=== PATIENT | male | born 1950 | race Caucasian/White ===

== ENCOUNTER → 2016-09-20 11:18 | Outpatient (CLI) | payer MEDICARE | END | disposition home or self-care (01) | LOC: D.CT 11:18 | DX: R10.9 Unspecified abdominal pain (principal) ==

== ENCOUNTER 2019-06-05 23:33 | Emergency (ER) | payer MEDICARE ==
[~2019-06-05] VITALS: Ht 177.8 cm; Wt 70.5 kg
[2019-06-05 23:38] VITALS: Ht 177.8 cm; Wt 70.5 kg
[2019-06-05] MEDS ORDERED: CILOSTAZOL50 MG PO (23:39)
[2019-06-05] MEDS ORDERED: CRESTOR20 MG PO (23:39)
[2019-06-05] MEDS ORDERED: PLAVIX75 MG PO (23:40)
[2019-06-05] MEDS ORDERED: ONDANSETRON ODT8 MG SL (23:40)
[2019-06-05] MEDS ORDERED: BACLOFEN20 M1 PO (23:57)
[2019-06-05] MEDS ORDERED: PREDNISONE20 MG PO (23:57)
[2019-06-06 00:55] VITALS: BP 142/68
[2019-06-09 14:27] VITALS: Ht 177.8 cm; Wt 70.5 kg
== END 2019-06-06 00:55 | disposition home or self-care (01) ==
LOC: D.ER 23:33
DX: M54.5 Low back pain (principal); M62.838 Other muscle spasm; I25.2 Old myocardial infarction; Z72.0 Tobacco use; X50.0XXA Overexertion from strenuous movement or load, initial encounter; Y93.9 Activity, unspecified; Y92.9 Unspecified place or not applicable

== ENCOUNTER 2019-06-08 18:03 | Inpatient (IN) | payer MEDICARE ==
[~2019-06-08] VITALS: Ht 170.2 cm; Wt 61.2 kg
[~2019-06-08 18:03] MED LIST: BACLOFEN20 M1 PO; CILOSTAZOL50 MG PO; CRESTOR20 MG PO; ONDANSETRON ODT8 MG SL; PLAVIX75 MG PO; PREDNISONE20 MG PO
[2019-06-08 18:16] VITALS: BP 104/74
[2019-06-08 18:46] LABS: BASOPHILS 0.1 % (0-2); EOSINOPHILS 0.3 % (0-7); HEMATOCRIT 35.8 % (42.0-54.0); HEMOGLOBIN 11.7 g/dL (13.5-17.5); IMMATURE GRANULOCYTES 0.2 % (0-5); LYMPHOCYTES 10.4 % (15-50); MCH 29.9 pg (26.0-34.0); MCHC 32.7 g/dL (31.0-37.0); MCV 91.6 fL (80.0-100.0); MEAN PLATELET VOLUME 9.8 fL (7.4-10.4); MONOCYTES 8.6 % (2-11); NEUTROPHILS 80.4 % (40-80); PLATELET COUNT 387 10x3/uL (130-400); RBC 3.91 10x6/uL (4.20-6.10); WBC 16.3 10x3/uL (4.8-10.8)
[2019-06-08 18:52] LABS: APTT 26.9 SECONDS (22.8-39.4); INR 0.91 (0.85-1.17); PROTIME 12.2 SECONDS (11.6-15.0)
[2019-06-08 18:54] LABS: D-DIMER-QUANTITATIVE 2.06 ug/mLFEU (0.20-0.54)
[2019-06-08 18:57] LABS: CALC OSMOLALITY 299 mosm/kg (275-300); CALCIUM 9.1 mg/dL (8.5-10.1); CARBON DIOXIDE 25.1 mmol/L (21.0-32.0); CHLORIDE - SERUM 111 mmol/L (98-107); GLUCOSE 98 mg/dL (74-106); SODIUM 148 mmol/L (136-145); UREA NITROGEN 29 mg/dL (7-18); eGFR NON AFRICAN AMERICAN 79 mL/min (90-120)
[2019-06-08 19:00] VITALS: BP 178/103
[2019-06-08 19:27] VITALS: BP 184/94
--- NOTE | 2019-06-08 19:27 | NUR ---
URINE OBTAINED FROM OSTOMY BAG. SENT TO THE LAB.
[2019-06-08 19:44] LABS: APPEARANCE CLOUDY (CLEAR); BILIRUBIN NEGATIVE (NEGATIVE); COLOR YELLOW (YELLOW); GLUCOSE NEGATIVE (NEGATIVE); KETONE NEGATIVE (NEGATIVE); NITRITE POSITIVE (NEGATIVE); PROTEIN 1+ mg/dL (NEGATIVE); UROBILINOGEN NORMAL (NORMAL)
[2019-06-08 19:45] LABS: RED CELLS - URINE 0-5 /hpf (0-5); WHITE CELLS - URINE 0-5 /hpf (NEGATIVE)
[2019-06-08 19:46] LABS: BACTERIA MODERATE /hpf (NEGATIVE)
[2019-06-08 19:50] LABS: AMORPHOUS SEDIMENT >1+ /lpf (NONE SEEN); URIC ACID CRYSTALS 25-50 /hpf (NONE SEEN)
[2019-06-08 19:54] LABS: UDS - AMPHET NEGATIVE QUAL (NEGATIVE); UDS - BARB NEGATIVE QUAL (NEGATIVE); UDS - BENZO NEGATIVE QUAL (NEGATIVE); UDS - COCAINE NEGATIVE QUAL (NEGATIVE); UDS - OPIATE NEGATIVE QUAL (NEGATIVE); UDS - PCP NEGATIVE QUAL (NEGATIVE); UDS - THC NEGATIVE QUAL (NEGATIVE)
[2019-06-08 20:00] VITALS: BP 153/63
[2019-06-08 20:07] LABS: ALBUMIN 3.4 g/dL (3.4-5.0); ALKALINE PHOSPHATASE 76 U/L (46-116); ALT (SGPT) 19 U/L (10-68); BILIRUBIN - TOTAL 0.26 mg/dL (0.2-1.3); CKMB 2.2 U/L (0.0-3.6); CREATINE KINASE 258 UL (21-232); PROTEIN - SERUM 7.2 g/dL (6.4-8.2); TROPONIN-I < 0.017 ng/mL (0.000-0.060)
[2019-06-08 20:28] VITALS: BP 159/88
--- NOTE | 2019-06-08 21:35 | NUR ---
EMANUELN COMPLETE AT 1070
--- NOTE | 2019-06-08 22:00 | NUR ---
RECEIVED PT TO FLOOR FROM ER VIA STRETCHER. PT CRIED OUT IN PAIN (NON-SPECIFIC) WHEN TRANSFERRING HIM AND TURNING HIM TO ASSESS. PT HAD RECENT BACK INJURY FAMILY REPORTS. PT HOLLERING OUT INAPPROPRIATE AND/OR INCOMPREHENSIBLE WORDS. EMPTIED 200 MLS CLOUDY ODIFEROUS URINE FROM UROSTOMY. REVIEWED HOME MEDS AND HISTORY WITH FAMILY. FAMILY GOING HOME. TELEMETRY ON. OXYGEN AT 2L/NC. PT NPO. WILL CONTINUE TO MONITOR.
[2019-06-08] MEDS ORDERED: HYDROCODON-ACE1 EA10 PO (22:18)
[2019-06-08] MEDS ORDERED: NITROSTAT0.4 MG SL (22:19)
[2019-06-08] MEDS ORDERED: COREG6.25 MG PO (22:21)
[2019-06-08 23:28] VITALS: BP 152/68; BMI 21.2
[2019-06-09] VITALS: BP 152/68
[2019-06-09 04:00] VITALS: BP 168/94
--- NOTE | 2019-06-09 07:30 | NUR ---
PT IS ALERT AND ORIENTED SORT OF. ANSWERES QUESTIOSN APPRORPIATELY, BUT IS CONSTANTLY TALKING LOUDLY TO HIMSELF. NO COMPLAINTS OR COCNERS AT THIS TIME. UROSTOMY EMPTIED. TUCKED UNDER COVERS. CL INR EACH, SRX2.
[2019-06-09 07:58] VITALS: BP 111/63
--- NOTE | 2019-06-09 10:16 | NUR ---
PT BACK IN ROOM AFTER MRI HOOKED BACK UP TO ANTIBIOTICS. STILL RANDOMLY TALKING A LOT, BUT ALERT AND ORIENTED. NO COMPLAITNS OTHER THAN BEING NPO HE'S PARCHED AND NEEDS WATER. NO FAMILY AT BEDSIDE. CL INR EACH, SRX2.
--- NOTE | 2019-06-09 10:16 | NUR ---
I have reviewed this patient and I concur with the Shift Assessment completed by the Licensed Practical Nurse today this shift.
--- NOTE | 2019-06-09 12:33 | NUR ---
WENT TO ADMINISTER PTS NIKOTINE PATCH, HE REFUSED STATING "IF I CAN'T ROLL IT AND SMOKE IT, I DONT WANT IT. THE HABBIT IS TO SEVERE FOR A SILLY PATCH". DISPOSED OF PATCH PER PROTOCOL. PT IS STILL COMPLIANING ABOUT NPO STATUS, HE WILL BE AHVING A EGD LATER TODAY AND UNDERSTNADS THE NEED FOR NPO. CL IN REACH, SRX2. NO FAMILY AT BEDSIDE.
--- NOTE | 2019-06-09 14:22 | NUR ---
PT OFF TO SURGERY.
[2019-06-09 14:27] VITALS: Ht 170.2 cm; Wt 61.2 kg
--- NOTE | 2019-06-09 14:53 | NUR ---
RECIEVED REPORT FROM GI, STATES PT LIKELY HAS CANCER AND SOME ESOPHAGEAL VARACIES, WILL WAIT ON TO CONFIRM.
[2019-06-09 17:33] VITALS: BP 150/79
[2019-06-09 21:11] VITALS: BP 140/70
--- NOTE | 2019-06-09 21:15 | NUR ---
SUPINE IN BED, A&O X 4. ROSSI ALARM ON. PT DENIES PAIN/DISCOMFORT. UROSTOMY TO RIGHT SIDE OF ABDOMEN, PT DEMONSTRATED SELF CARE. DENIES NEEDS AT THIS TIME, WILL CONTINUE TO MONITOR.
[2019-06-10 01:24] VITALS: BP 139/97
--- NOTE | 2019-06-10 03:20 | NUR ---
I have reviewed this patient and I concur with the Shift Assessment completed by the Licensed Practical Nurse today this shift.
[2019-06-10 04:54] LABS: BASOPHILS 0.3 % (0-2); EOSINOPHILS 1.4 % (0-7); HEMOGLOBIN 9.9 g/dL (13.5-17.5); IMMATURE GRANULOCYTES 0.3 % (0-5); LYMPHOCYTES 17.8 % (15-50); MCH 29.5 pg (26.0-34.0); MCHC 31.9 g/dL (31.0-37.0); MCV 92.3 fL (80.0-100.0); MEAN PLATELET VOLUME 9.5 fL (7.4-10.4); MONOCYTES 7.4 % (2-11); NEUTROPHILS 72.8 % (40-80); PLATELET COUNT 347 10x3/uL (130-400); RBC 3.36 10x6/uL (4.20-6.10); RDW 16.1 % (11.5-14.5)
[2019-06-10 04:56] VITALS: BP 149/74
[2019-06-10 05:09] LABS: CALCIUM 7.5 mg/dL (8.5-10.1); CHLORIDE - SERUM 108 mmol/L (98-107); GLUCOSE 81 mg/dL (74-106); SODIUM 141 mmol/L (136-145); eGFR NON AFRICAN AMERICAN 79 mL/min (90-120)
[2019-06-10 05:16] LABS: WBC 11.7 10x3/uL (4.8-10.8)
[2019-06-10 05:22] LABS: CALC OSMOLALITY 280 mosm/kg (275-300); POTASSIUM - SERUM 3.1 mmol/L (3.5-5.1); UREA NITROGEN 15 mg/dL (7-18)
--- NOTE | 2019-06-10 07:32 | NUR ---
REPORT RECEIVED. WILL CONTINUE WITH POC. PT CURRENTLY LYING SUPINE. CALL LIGHT W/I REACH. PT IS AAO AND UP WITH ASSIST. RR EVEN AND UNLABORED ON RA. NS INFUSING @125ML/HR VIA L.UPPER ARM PIV. NO S/S OF DISTRESS NOTED. PT PLEASANT THIS AM. WILL CTM.
[2019-06-10 09:16] VITALS: BP 144/78
[2019-06-10 13:29] VITALS: BP 130/79
--- NOTE | 2019-06-10 13:38 | MORECARE ---
CASE MANAGEMENT DISCHARGE SUMMARY PATIENT: VANE CARRILLO UNIT: [id number] ADM DATE: 06/08/19 AGE: 69 : 52 SEX: M ROOM/BED: D.2235 AUTHOR: LUIGI BRADY PHYSICIAN: REFERRING PHYSICIAN: CLAUS MOISE MD DATE OF SERVICE: 06/10/19 Discharge Plan Patient Name: VANE CARRILLO [facility] : 1950 Planned Disposition: Home Anticipated Discharge Date: Discharge Date: Expected LOS: Initial Reviewer: [email or web address] Initial Review Date: 06/10/2019 Generated: 06/10/19 2:37 pm Patient Name: VANE CARRILLO Page [phone] at 1338 All edits/amendments must be made on the electronic document DICTATION DATE: 06/10/19 1337 SALES STRATEGY MANAGER: DIOMEDES 06/10/19 1337 RPT#: [id number] DC DATE: STATUS: ADM IN [facility] [address] [place] [address] END OF REPORT
--- NOTE | 2019-06-10 13:46 | MORECARE ---
CASE MANAGEMENT DISCHARGE SUMMARY PATIENT: VANE CARRILLO UNIT: [id number] ADM DATE: 06/08/19 AGE: 69 : 52 SEX: M ROOM/BED: D.2235 AUTHOR: LUIGI BRADY PHYSICIAN: REFERRING PHYSICIAN: CLAUS MOISE MD DATE OF SERVICE: 06/10/19 Discharge Plan Patient Name: VANE CARRILLO [facility] : 1950 Planned Disposition: Home Anticipated Discharge Date: Discharge Date: Expected LOS: Initial Reviewer: [email or web address] Initial Review Date: 06/10/2019 Generated: 06/10/19 2:46 pm DCPIA - Discharge Planning Initial Assessment Updated by [email or web address]: Chiquis Caldera on 06/10/19 1:40 pm * Is the patient Alert and Oriented? Yes * How many steps to enter\exit or inside your home? 4/0 * PCP Albin * Pharm[facility] * Preadmission Environment Home with Family * ADLs Partial Dependent * Partial ADLs (Assistance needed) Ambulation Dressing Transfers * Equipment Cane Ostomy Supplies Other Rolling Walker * Other Equipment Grabber * List name and contact numbers for known caregivers / representatives who currently or will assist patient after discharge: Vanessa Brooks [phone] * Verbal permission to speak to the caregivers and representatives has been obtained from the patient. Yes * Community resources currently utilized None * Additional services required to return to the preadmission environment? No * Can the patient safely return to the preadmission environment? Yes * Has this patient been hospitalized within the prior 30 days at any hospital? No Last DP export: 06/10/19 12:38 p Patient Name: VANE CARRILLO Page [phone] at 1346 All edits/amendments must be made on the electronic document DICTATION DATE: 06/10/19 1346 ELECTRICAL ENGINEERING MANAGER: DIOMEDES 06/10/19 1346 RPT#: [id number] DC DATE: STATUS: ADM IN [facility] [address] [place] [address] END OF REPORT
--- NOTE | 2019-06-10 13:54 | MORECARE ---
CASE MANAGEMENT DISCHARGE SUMMARY PATIENT: VANE CARRILLO UNIT: [id number] ADM DATE: 06/08/19 AGE: 69 : 52 SEX: M ROOM/BED: D.2235 AUTHOR: JOSE ANTONIO,DOC PHYSICIAN: REFERRING PHYSICIAN: CLAUS MOISE MD DATE OF SERVICE: 06/10/19 Discharge Plan Patient Name: VANE CARRILLO Facility: [facility]:[place] : 1950 Planned Disposition: Home Anticipated Discharge Date: Discharge Date: Expected LOS: Initial Reviewer: [email or web address] Initial Review Date: 06/10/2019 Generated: 06/10/19 2:54 pm Comments DCP- Discharge Planning Updated by [email or web address]: Chiquis Caldera on 06/10/19 12:[address] Patient Name: VANE CARRILLO Admission Status: ER Accout number: [id number] Admission Date: 06-08-2019 : 1950 Admission Diagnosis: Attending: CLAUS MOISE Current LOS: 2 Anticipated DC Date: Planned Disposition: Home Primary Insurance: HU[employer] CHOICE PPO MCR ADVANT Discharge Planning Comments: CM met with patient to complete initial dc planning assessment. CM educated patient on the CM role and verbal consent given by patient to complete assessment. Patient lives at home with spouse. At discharge patient plans to return home and feels this is a safe discharge. CM discussed availability of home health, rehab services, and medical equipment. Patient states he has used [facility] in the past and if he needs assistance he will use them ([facility]) again. the patient states he gets his ileal conduit ostomy supplies from [facility].. CM will continue to follow and will assist as needed with dc plans/needs. Energy Efficiency Specialist: Chiquis Caldera DCPIA - Discharge Planning Initial Assessment Updated by [email or web address]: Chiquis Caldera on 06/10/19 1:40 pm * Is the patient Alert and Oriented? Yes * How many steps to enter\exit or inside your home? 4/0 * PCP Albin * [facility] * Preadmission Environment Home with Family * ADLs Partial Dependent * Partial ADLs (Assistance needed) Ambulation Dressing Transfers * Equipment Cane Ostomy Supplies Other Rolling Walker * Other Equipment Grabber * List name and contact numbers for known caregivers / representatives who currently or will assist patient after discharge: aVnessa Brooks [phone] * Verbal permission to speak to the caregivers and representatives has been obtained from the patient. Yes * Community resources currently utilized None * Additional services required to return to the preadmission environment? No * Can the patient safely return to the preadmission environment? Yes * Has this patient been hospitalized within the prior 30 days at any hospital? No Coverage Notice Reviewer: [id number] Aye Mazariegos Notice Issued Date-Time: 06/10/2019 13:48 Notice Type: Patient Choice Letter Notice Delivered To: Patient Relationship to Patient: Self Zoology Professor Name: Delivery Method: HAND - Hand Delivered Gladys Days: Prior Verbal Notification: Recipient Understood Notice: Yes Recipient Signature: Yes Med Rec Note Co-signed by Attending: Coverage Notice Comment: SUDEEP for [facility] if needed Last DP export: 06/10/19 12:46 p Patient Name: VANE CARRILLO Page 47710 at 1354 All edits/amendments must be made on the electronic document DICTATION DATE: 06/10/19 1354 PLANT ELECTRICIAN: DIOMEDES 06/10/19 1354 RPT#: [id number] DC DATE: STATUS: ADM IN [facility] [address] [place] [address] END OF REPORT
[2019-06-10 17:55] VITALS: BP 105/59
--- NOTE | 2019-06-10 19:17 | NUR ---
I have reviewed this patient and I concur with the Shift Assessment completed by the Licensed Practical Nurse today this shift.
[2019-06-10 21:18] VITALS: BP 147/71
--- NOTE | 2019-06-11 00:20 | NUR ---
PT ALERT IN ROOM, ATTEMPTING TO GET OUT OF BED, ROSSI ALARM FUNCTIONING. PT ADDRESSED ME ALYCE, THEN BETHANY. AFTER INFORMING PT I WAS HIS NURSE AND HE WAS IN THE HOSPITAL. HE SAID "I KNOW!" AND PROCEDED TO ATTEMPT TO GET OUT OF BED. INFORMED PT HE WAS PULLING HIS IV TUBING. PT SAT BACK DOWN, THEN TRIED TO GET BACK UP. PT UNABLE TO EMPTY UROSTOMY TO WEAVER. STATED HE WANTED TO SIT IN CHAIR. ROSSI MAT APPLIED TO CHAIR. PT VERY WEAK WHILE TRANSFERING TO CHAIR. INFORMED NOT TO GET UP W/O ASSISTANCE AND TO USE CALL LIGHT. PT VERBALIZED UNDERSTANDING. WILL MONITOR CLOSELY.
[2019-06-11 01:14] VITALS: BP 142/85
--- NOTE | 2019-06-11 03:21 | NUR ---
I have reviewed this patient and I concur with the Shift Assessment completed by the Licensed Practical Nurse today this shift.
[2019-06-11 06:06] VITALS: BP 153/72
[2019-06-11 06:19] LABS: BASOPHILS 0.3 % (0-2); EOSINOPHILS 2.8 % (0-7); HEMATOCRIT 27.3 % (42.0-54.0); HEMOGLOBIN 8.9 g/dL (13.5-17.5); IMMATURE GRANULOCYTES 0.3 % (0-5); LYMPHOCYTES 14.1 % (15-50); MCH 29.6 pg (26.0-34.0); MCHC 32.6 g/dL (31.0-37.0); MCV 90.7 fL (80.0-100.0); MEAN PLATELET VOLUME 9.4 fL (7.4-10.4); MONOCYTES 8.2 % (2-11); NEUTROPHILS 74.3 % (40-80); PLATELET COUNT 304 10x3/uL (130-400); RBC 3.01 10x6/uL (4.20-6.10); RDW 16.1 % (11.5-14.5); WBC 10.3 10x3/uL (4.8-10.8)
[2019-06-11 06:47] LABS: % SATURATION 9 % (15-55); IRON 23 ug/dl (35-150); TOTAL IRON BIND CAPACITY 239 ug/dl (260-445); UNSAT IRON BIND CAPACITY 216 ug/dl (150-375)
--- NOTE | 2019-06-11 07:00 | NUR ---
PATIENT CONFUSED, TRYING TO CLIMB OUT OF BED. THIS NURSE ASSISTED PATIENT BACK INTO BED. HX ETOH ABUSE. WEARS GLASSES. ROSSI ALARM ON. UROSTOMY PRESENT TO ABDOMEN. IV TO LEFT UPPER ARM, NS INFUSING @ 125ML/HR. SITE PATENT WITHOUT REDNESS OR SWELLING. ON TELEMETRY 68SR. H&H DOWN FROM YESTERDAY, WAS 11.7/35.8 AND NOW IS 8.9/27.3 . DENIES ANY NEEDS AT THIS TIME. CALL LIGHT IN REACH. WILL CONTINUE TO MONITOR.
[2019-06-11 07:15] LABS: CALCIUM 7.4 mg/dL (8.5-10.1); CARBON DIOXIDE 19.4 mmol/L (21.0-32.0); CHLORIDE - SERUM 114 mmol/L (98-107); FERRITIN 31 ng/mL (3-244); GLUCOSE 91 mg/dL (74-106); MAGNESIUM - SERUM 2.1 mg/dL (1.8-2.4); POTASSIUM - SERUM 3.5 mmol/L (3.5-5.1); SODIUM 142 mmol/L (136-145)
[2019-06-11 07:16] LABS: CALC OSMOLALITY 281 mosm/kg (275-300); CREATININE - SERUM 0.7 mg/dL (0.6-1.3); UREA NITROGEN 9 mg/dL (7-18); eGFR NON AFRICAN AMERICAN > 90 mL/min (90-120)
[2019-06-11 08:55] VITALS: BP 138/67
--- NOTE | 2019-06-11 10:18 | NUR ---
NUTRITION F/U CHART REVIEWED, PT VISIT. TOLERATING REG DIET THIS AM WITH ~50% INTAKE. WILL ADD ENSURE TO MEALS, MONITOR PO INTAKE. RD FOLLOWING
[2019-06-11 12:55] VITALS: BP 127/83
[2019-06-11 16:28] LABS: BASOPHILS 0.2 % (0-2); EOSINOPHILS 2.9 % (0-7); HEMATOCRIT 28.6 % (42.0-54.0); HEMOGLOBIN 9.3 g/dL (13.5-17.5); IMMATURE GRANULOCYTES 0.2 % (0-5); LYMPHOCYTES 12.4 % (15-50); MCH 29.5 pg (26.0-34.0); MCHC 32.5 g/dL (31.0-37.0); MCV 90.8 fL (80.0-100.0); MEAN PLATELET VOLUME 9.8 fL (7.4-10.4); MONOCYTES 7.2 % (2-11); NEUTROPHILS 77.1 % (40-80); PLATELET COUNT 309 10x3/uL (130-400); RBC 3.15 10x6/uL (4.20-6.10); RDW 16.2 % (11.5-14.5); WBC 12.1 10x3/uL (4.8-10.8)
--- NOTE | 2019-06-11 17:22 | NUR ---
I have reviewed this patient and I concur with the Shift Assessment completed by the Licensed Practical Nurse today this shift.
[2019-06-11 17:33] VITALS: BP 154/83
--- NOTE | 2019-06-11 18:29 | NUR ---
ALERT AND ORIENTED, RESTING IN BED WITH EYES OPEN. C/O ANXIETY, GAVE 1MG ATIVAN IV. NO C/O PAIN. NO S/S OF ACUTE DISTRESS NOTED. DENIES ANY NEEDS AT THIS TIME. CALL LIGHT IN REACH. WILL CONTINUE TO MONITOR.
[2019-06-11 19:30] VITALS: BP 155/74
--- NOTE | 2019-06-11 20:00 | NUR ---
PT CONFUSED. TRYING TO GET OUT OF BED. UNABLE TO REORIENT. REPORTS BACK PAIN 11/27. FALL PRECAUTIONS IN PLACE, WILL MONITOR CLOSELY.
[2019-06-12] VITALS (7 sets, daily range): BP systolic 110–168; BP diastolic 55–99
--- NOTE | 2019-06-12 02:04 | NUR ---
I have reviewed this patient and I concur with the Shift Assessment completed by the Licensed Practical Nurse today this shift.
[2019-06-12 05:05] LABS: BASOPHILS 0.2 % (0-2); EOSINOPHILS 3.2 % (0-7); HEMATOCRIT 28.5 % (42.0-54.0); HEMOGLOBIN 9.2 g/dL (13.5-17.5); IMMATURE GRANULOCYTES 0.4 % (0-5); LYMPHOCYTES 12.3 % (15-50); MCH 29.3 pg (26.0-34.0); MCHC 32.3 g/dL (31.0-37.0); MCV 90.8 fL (80.0-100.0); MONOCYTES 8.9 % (2-11); PLATELET COUNT 313 10x3/uL (130-400); RBC 3.14 10x6/uL (4.20-6.10); RDW 16.4 % (11.5-14.5); WBC 11.2 10x3/uL (4.8-10.8)
[2019-06-12 05:24] LABS: CALC OSMOLALITY 286 mosm/kg (275-300); CALCIUM 7.3 mg/dL (8.5-10.1); CARBON DIOXIDE 22.8 mmol/L (21.0-32.0); CHLORIDE - SERUM 113 mmol/L (98-107); CREATININE - SERUM 0.8 mg/dL (0.6-1.3); GLUCOSE 85 mg/dL (74-106); MAGNESIUM - SERUM 2.2 mg/dL (1.8-2.4); POTASSIUM - SERUM 3.2 mmol/L (3.5-5.1); SODIUM 145 mmol/L (136-145); UREA NITROGEN 10 mg/dL (7-18); eGFR NON AFRICAN AMERICAN > 90 mL/min (90-120)
--- NOTE | 2019-06-12 06:45 | NUR ---
TRYING TO GET UP OUT OF BED, ROSSI ALARM ON. BED WET FROM UROSTOMY LEAKING. THIS NURSE CHANGED ALL LINENS ON BED. ASSISTED PATIENT IN THE BED. DRAINED UROSTOMY BAG. IV TO LEFT UPPER ARM, NS INFUSING @ 125ML/HR. SITE PATENT WITHOUT REDNESS OR SWELLING. C/O PAIN TO BACK, CHRONIC PAIN. PAIN MEDICINE GIVEN ON PRIOR SHIFT, NOT TIME YET FOR MORE. NO S/S OF ACUTE DISTRESS NOTED. CALL LIGHT IN REACH. DENIES ANY NEEDS AT THIS TIME. WILL CONTINUE TO MONITOR.
--- NOTE | 2019-06-12 11:26 | NUR ---
I have reviewed this patient and I concur with the Shift Assessment completed by the Licensed Practical Nurse today this shift.
[2019-06-12 16:23] LABS: BASOPHILS 0.3 % (0-2); EOSINOPHILS 2.4 % (0-7); HEMATOCRIT 29.7 % (42.0-54.0); IMMATURE GRANULOCYTES 0.4 % (0-5); LYMPHOCYTES 10.5 % (15-50); MCH 30.7 pg (26.0-34.0); MCHC 33.7 g/dL (31.0-37.0); MCV 91.1 fL (80.0-100.0); MEAN PLATELET VOLUME 9.5 fL (7.4-10.4); MONOCYTES 7.2 % (2-11); NEUTROPHILS 79.2 % (40-80); PLATELET COUNT 290 10x3/uL (130-400); RBC 3.26 10x6/uL (4.20-6.10); RDW 16.4 % (11.5-14.5); WBC 13.6 10x3/uL (4.8-10.8)
--- NOTE | 2019-06-12 17:00 | NUR ---
IV TO LEFT FOREARM INFILTRATED. DISCONTINUED CATHETER TIP INTACT. RESITED TO RIGHT FOREARM, 22 GA X1 STICK. GOOD BLOOD RETURN.
--- NOTE | 2019-06-12 18:08 | NUR ---
ALERT AND ORIENTED X3. SITTING UP IN BED EATING SUPPER. NO C/O PAIN. NO S/S OF ACUTE DISTRESS NOTED. DENIES ANY NEEDS AT THIS TIME. CALL LIGHT IN REACH. WILL CONTINUE TO MONITOR.
[2019-06-13 00:30] VITALS: BP 104/67
[2019-06-13 04:30] VITALS: BP 140/69
[2019-06-13 06:27] LABS: BASOPHILS 0.3 % (0-2); EOSINOPHILS 3.3 % (0-7); HEMATOCRIT 25.8 % (42.0-54.0); HEMOGLOBIN 8.4 g/dL (13.5-17.5); IMMATURE GRANULOCYTES 0.4 % (0-5); LYMPHOCYTES 15.8 % (15-50); MCH 29.4 pg (26.0-34.0); MCHC 32.6 g/dL (31.0-37.0); MCV 90.2 fL (80.0-100.0); MONOCYTES 8.7 % (2-11); NEUTROPHILS 71.5 % (40-80); PLATELET COUNT 280 10x3/uL (130-400); RBC 2.86 10x6/uL (4.20-6.10); RDW 16.5 % (11.5-14.5); WBC 11.3 10x3/uL (4.8-10.8)
[2019-06-13 07:01] LABS: CALC OSMOLALITY 287 mosm/kg (275-300); CALCIUM 7.3 mg/dL (8.5-10.1); CARBON DIOXIDE 22.5 mmol/L (21.0-32.0); CHLORIDE - SERUM 112 mmol/L (98-107); CREATININE - SERUM 0.9 mg/dL (0.6-1.3); MAGNESIUM - SERUM 2.1 mg/dL (1.8-2.4); POTASSIUM - SERUM 3.1 mmol/L (3.5-5.1); SODIUM 144 mmol/L (136-145); UREA NITROGEN 10 mg/dL (7-18); eGFR NON AFRICAN AMERICAN 89 mL/min (90-120)
[2019-06-13 07:02] LABS: GLUCOSE 132 mg/dL (74-106)
--- NOTE | 2019-06-13 07:50 | NUR ---
RESTING IN BED, EYES CLOSED. RESPIRATIONS EVEN AND UNLABORED. AROUSES TO VOICE. NO C/O PAIN. NO S/S OF ACUTE DISTRESS NOTED. UP WITH ASSIST. UROSTOMY TO ABDOMEN. IV TO RIGHT FOREARM, NS INFUSING @ 125ML/HR. SITE PATENT WITHOUT REDNESS OR SWELLING. ON TELEMETRY SR 75. POTASSIUM 3.1 THIS AM, WILL FOLLOW ELECTROLYTE PROTOCOL. DENIES ANY NEEDS AT THIS TIME. CALL LIGHT IN REACH. WILL CONTINUE TO MONITOR.
[2019-06-13 08:53] VITALS: BP 129/55
[2019-06-13 13:01] VITALS: BP 111/60
--- NOTE | 2019-06-13 13:25 | NUR ---
I have reviewed this patient and I concur with the Shift Assessment completed by the Licensed Practical Nurse today this shift.
[2019-06-13 16:13] LABS: BASOPHILS 0.3 % (0-2); EOSINOPHILS 2.6 % (0-7); HEMATOCRIT 26.7 % (42.0-54.0); HEMOGLOBIN 8.8 g/dL (13.5-17.5); IMMATURE GRANULOCYTES 0.4 % (0-5); LYMPHOCYTES 11.3 % (15-50); MCH 29.5 pg (26.0-34.0); MCV 89.6 fL (80.0-100.0); MEAN PLATELET VOLUME 9.8 fL (7.4-10.4); MONOCYTES 7.9 % (2-11); NEUTROPHILS 77.5 % (40-80); PLATELET COUNT 304 10x3/uL (130-400); RBC 2.98 10x6/uL (4.20-6.10); RDW 16.4 % (11.5-14.5); WBC 13.4 10x3/uL (4.8-10.8)
[2019-06-13 17:02] VITALS: BP 133/64
--- NOTE | 2019-06-13 18:34 | NUR ---
ALERT AND ORIENTED, SITTING UP IN BED. WATCHING TV. DENIES ANY NEEDS AT THIS TIME. CALL LIGHT IN REACH. WILL CONTINUE TO MONITOR.
[2019-06-13 20:00] VITALS: BP 152/72
[2019-06-14 07:16] LABS: BASOPHILS 0.3 % (0-2); EOSINOPHILS 3.3 % (0-7); HEMATOCRIT 25.6 % (42.0-54.0); HEMOGLOBIN 8.4 g/dL (13.5-17.5); IMMATURE GRANULOCYTES 0.4 % (0-5); LYMPHOCYTES 13.8 % (15-50); MCH 29.7 pg (26.0-34.0); MCHC 32.8 g/dL (31.0-37.0); MCV 90.5 fL (80.0-100.0); MONOCYTES 9.6 % (2-11); NEUTROPHILS 72.6 % (40-80); PLATELET COUNT 313 10x3/uL (130-400); RBC 2.83 10x6/uL (4.20-6.10); RDW 16.7 % (11.5-14.5); WBC 10.8 10x3/uL (4.8-10.8)
[2019-06-14 07:40] LABS: ALBUMIN 2.1 g/dL (3.4-5.0); ALKALINE PHOSPHATASE 57 U/L (30-120); ALT (SGPT) 17 U/L (10-68); BILIRUBIN - TOTAL 0.15 mg/dL (0.2-1.3); CALC OSMOLALITY 282 mosm/kg (275-300); CALCIUM 7.4 mg/dL (8.5-10.1); CARBON DIOXIDE 22.2 mmol/L (21.0-32.0); CHLORIDE - SERUM 113 mmol/L (98-107); CREATININE - SERUM 0.8 mg/dL (0.6-1.3); GLUCOSE 97 mg/dL (74-106); POTASSIUM - SERUM 3.5 mmol/L (3.5-5.1); PROTEIN - SERUM 5.2 g/dL (6.4-8.2); SODIUM 143 mmol/L (136-145); UREA NITROGEN 8 mg/dL (7-18); eGFR NON AFRICAN AMERICAN > 90 mL/min (90-120)
--- NOTE | 2019-06-14 08:52 | NUR ---
PT ALERT X 4. BREATH SOUNDS CLEAR BILAT. UROSTOMY TO RLQ, URINE YELLOW AND CLEAR. IV TO RIGHT FOREARM, PATENT, DRESSING CDI. PT REPORTING PAIN OF 9/10 TO BACK, WILL MONITOR. BED LOW, CALL LIGHT IN REACH. NO OTHER NEEDS AT THIS TIME.
[2019-06-14 10:05] VITALS: BP 144/59
[2019-06-14 12:39] VITALS: BP 137/71
[2019-06-14 16:33] VITALS: BP 134/56
[2019-06-14 18:27] LABS: BASOPHILS 0.3 % (0-2); EOSINOPHILS 2.7 % (0-7); HEMATOCRIT 28.5 % (42.0-54.0); HEMOGLOBIN 9.2 g/dL (13.5-17.5); IMMATURE GRANULOCYTES 0.5 % (0-5); LYMPHOCYTES 14.4 % (15-50); MCH 29.8 pg (26.0-34.0); MCHC 32.3 g/dL (31.0-37.0); MCV 92.2 fL (80.0-100.0); MEAN PLATELET VOLUME 9.7 fL (7.4-10.4); MONOCYTES 9.3 % (2-11); NEUTROPHILS 72.8 % (40-80); PLATELET COUNT 304 10x3/uL (130-400); RBC 3.09 10x6/uL (4.20-6.10); WBC 13.1 10x3/uL (4.8-10.8)
[2019-06-14 19:30] VITALS: BP 144/67
[2019-06-15 00:30] VITALS: BP 131/45
[2019-06-15 05:28] LABS: BASOPHILS 0.2 % (0-2); EOSINOPHILS 2.6 % (0-7); HEMATOCRIT 25.6 % (42.0-54.0); HEMOGLOBIN 8.3 g/dL (13.5-17.5); IMMATURE GRANULOCYTES 0.6 % (0-5); LYMPHOCYTES 17.6 % (15-50); MCH 29.5 pg (26.0-34.0); MCHC 32.4 g/dL (31.0-37.0); MCV 91.1 fL (80.0-100.0); MEAN PLATELET VOLUME 9.8 fL (7.4-10.4); MONOCYTES 9.2 % (2-11); NEUTROPHILS 69.8 % (40-80); PLATELET COUNT 304 10x3/uL (130-400); RBC 2.81 10x6/uL (4.20-6.10); WBC 12.5 10x3/uL (4.8-10.8)
[2019-06-15 05:50] LABS: ALBUMIN 2.4 g/dL (3.4-5.0); ALKALINE PHOSPHATASE 66 U/L (30-120); ALT (SGPT) 17 U/L (10-68); CALC OSMOLALITY 283 mosm/kg (275-300); CALCIUM 8.1 mg/dL (8.5-10.1); CARBON DIOXIDE 24.2 mmol/L (21.0-32.0); CHLORIDE - SERUM 112 mmol/L (98-107); CREATININE - SERUM 0.7 mg/dL (0.6-1.3); GLUCOSE 96 mg/dL (74-106); POTASSIUM - SERUM 3.5 mmol/L (3.5-5.1); PROTEIN - SERUM 5.6 g/dL (6.4-8.2); SODIUM 143 mmol/L (136-145); UREA NITROGEN 9 mg/dL (7-18); eGFR NON AFRICAN AMERICAN > 90 mL/min (90-120)
[2019-06-15 08:16] VITALS: BP 119/40
--- NOTE | 2019-06-15 09:19 | NUR ---
PT ALERT X 4. BREATH SOUNDS CLEAR BILAT. IV TO LEFT HAND PATENT, DRESSING CDI. UROSTOMY TO RLQ. PT REPORTING PAIN OF 7/10, MEDICATED PER ORDERS, WILL MONITOR. BED LOW, CALL LIGHT IN REACH. NO OTHER NEEDS AT THIS TIME.
[2019-06-15 13:40] VITALS: BP 114/50
[2019-06-15] MEDS ORDERED: FLORAJEN3 CAPS460 MG PO (14:44)
[2019-06-15] MEDS ORDERED: Nicoderm [PBKC] TRANSDERM (14:44)
[2019-06-15] MEDS ORDERED: CARAFATE1 G PO (14:45)
[2019-06-15] MEDS ORDERED: PROTONIX40 MG PO (14:45)
[2019-06-15] MEDS ORDERED: FERROUS SULFAT325 MG PO (14:45)
[2019-06-15] MEDS ORDERED: OMNICEF300 MG PO (14:46)
[2019-06-15 16:04] LABS: BASOPHILS 0.3 % (0-2); HEMATOCRIT 27.3 % (42.0-54.0); HEMOGLOBIN 8.8 g/dL (13.5-17.5); IMMATURE GRANULOCYTES 0.5 % (0-5); LYMPHOCYTES 15.6 % (15-50); MCH 29.7 pg (26.0-34.0); MCHC 32.2 g/dL (31.0-37.0); MCV 92.2 fL (80.0-100.0); MONOCYTES 9.7 % (2-11); NEUTROPHILS 71.9 % (40-80); PLATELET COUNT 306 10x3/uL (130-400); RBC 2.96 10x6/uL (4.20-6.10); RDW 17.1 % (11.5-14.5); WBC 12.9 10x3/uL (4.8-10.8)
--- NOTE | 2019-06-15 16:29 | NUR ---
DISCHARGE PAPERWORK SIGNED, ALL QUESTIONS ANSWERED. IV TO LEFT HAND DC'D, TIP INTACT. ESCORTED OUT BY WHEELCHAIR.
--- NOTE | 2019-06-16 08:50 | MORECARE ---
CASE MANAGEMENT DISCHARGE SUMMARY PATIENT: VANE CARRILLO UNIT: [id number] ADM DATE: 06/08/19 AGE: 69 : 52 SEX: M ROOM/BED: D.2235 AUTHOR: JOSE ANTONIO,DOC PHYSICIAN: REFERRING PHYSICIAN: CLAUS MOISE MD DATE OF SERVICE: 06/16/19 Discharge Plan Patient Name: VANE CARRILLO Facility: [facility]:[place] : 1950 Planned Disposition: Home Anticipated Discharge Date: Discharge Date: 06/15/2019 Expected LOS: Initial Reviewer: [email or web address] Initial Review Date: 06/10/2019 Generated: 06/16/19 9:49 am DCP- Discharge Planning Updated by [email or web address]: Chiquis Caldera on 06/10/19 12:[address] Patient Name: VANE CARRILLO Admission Status: ER Accout number: [id number] Admission Date: 06-08-2019 : 1950 Admission Diagnosis: Attending: CLAUS MOISE Current LOS: 2 Anticipated DC Date: Planned Disposition: Home Primary Insurance: HU[employer] CHOICE PPO MCR ADVANT Discharge Planning Comments: CM met with patient to complete initial dc planning assessment. CM educated patient on the CM role and verbal consent given by patient to complete assessment. Patient lives at home with spouse. At discharge patient plans to return home and feels this is a safe discharge. CM discussed availability of home health, rehab services, and medical equipment. Patient states he has used [facility] in the past and if he needs assistance he will use them ([facility]) again. the patient states he gets his ileal conduit ostomy supplies from [facility].. CM will continue to follow and will assist as needed with dc plans/needs. Industrial Machinery Mechanic: Chiquis Caldera DCPIA - Discharge Planning Initial Assessment Updated by [email or web address]: Chiquis Caldera on 06/10/19 1:40 pm * Is the patient Alert and Oriented? Yes * How many steps to enter\exit or inside your home? 4/0 * PCP Albin * Pharm[facility] * Preadmission Environment Home with Family * ADLs Partial Dependent * Partial ADLs (Assistance needed) Ambulation Dressing Transfers * Equipment Cane Ostomy Supplies Other Rolling Walker * Other Equipment Grabber * List name and contact numbers for known caregivers / representatives who currently or will assist patient after discharge: Vanessa Brooks [phone] * Verbal permission to speak to the caregivers and representatives has been obtained from the patient. Yes * Community resources currently utilized None * Additional services required to return to the preadmission environment? No * Can the patient safely return to the preadmission environment? Yes * Has this patient been hospitalized within the prior 30 days at any hospital? No Coverage Notice Reviewer: [id number] Aye Mazariegos Notice Issued Date-Time: 06/10/2019 13:48 Notice Type: Patient Choice Letter Notice Delivered To: Patient Relationship to Patient: Self Dater Assembler Name: Delivery Method: HAND - Hand Delivered Gladys Days: Prior Verbal Notification: Recipient Understood Notice: Yes Recipient Signature: Yes Med Rec Note Co-signed by Attending: Coverage Notice Comment: SUDEEP for [facility] if needed Last DP export: 06/10/19 12:54 p Patient Name: VANE CARRILLO Page 92487 at 0850 All edits/amendments must be made on the electronic document DICTATION DATE: 06/16/19 0850 B2B SALES REPRESENTATIVE: DIOMEDES 06/16/19 0850 RPT#: [id number] DC DATE:06/15/19 STATUS: DIS IN [facility] [address] [place] [address] END OF REPORT
[2019-06-16] MEDS ORDERED: TORADOL10 MG PO (16:49)
[2019-06-21 16:08] LABS: AEROBE ID Final report (()); RESULT 1 Proteus mirabilis (())
== END 2019-06-15 16:30 | disposition home health service (06) | DRG 391 ==
LOC: D.ER 18:03 → D.MS 19:54
PROVIDERS: Family Medicine; Internal Medicine Gastroenterology; ADMIT Internal Medicine Nephrology; ATTEND Internal Medicine Nephrology
PROC: 0DB78ZX Excision of Stomach, Pylorus, Via Natural or Artificial Opening Endoscopic, Diagnostic (ICD-10-PCS; 2019-06-09)
PROC: 0DB48ZX Excision of Esophagogastric Junction, Via Natural or Artificial Opening Endoscopic, Diagnostic (ICD-10-PCS; 2019-06-09)
PROC: 0DB38ZX Excision of Lower Esophagus, Via Natural or Artificial Opening Endoscopic, Diagnostic (ICD-10-PCS; principal; 2019-06-09 14:31)
DX: K20.8 Other esophagitis (principal); G93.41 Metabolic encephalopathy; T83.518A Infection and inflammatory reaction due to other urinary catheter, initial encounter; F17.203 Nicotine dependence unspecified, with withdrawal; I31.3 Pericardial effusion (noninflammatory); K29.00 Acute gastritis without bleeding; J44.9 Chronic obstructive pulmonary disease, unspecified; D64.9 Anemia, unspecified; I71.4 Abdominal aortic aneurysm, without rupture; I71.2 Thoracic aortic aneurysm, without rupture

== ENCOUNTER 2019-06-16 13:20 | Emergency (ER) | payer MEDICARE ==
[~2019-06-16] VITALS: Ht 170.2 cm; Wt 56.8 kg
[~2019-06-16 13:20] MED LIST changes: +CARAFATE1 G PO; +COREG6.25 MG PO; +FERROUS SULFAT325 MG PO; +FLORAJEN3 CAPS460 MG PO; +HYDROCODON-ACE1 EA10 PO; +NITROSTAT0.4 MG SL; +Nicoderm [PBKC] TRANSDERM; +OMNICEF300 MG PO; +PROTONIX40 MG PO
[2019-06-16 13:30] VITALS: Ht 170.2 cm; Wt 56.8 kg
[2019-06-16 16:01] LABS: APPEARANCE CLEAR (CLEAR); BILIRUBIN NEGATIVE (NEGATIVE); COLOR YELLOW (YELLOW); GLUCOSE NEGATIVE (NEGATIVE); KETONE NEGATIVE (NEGATIVE); NITRITE NEGATIVE (NEGATIVE); PROTEIN NEGATIVE (NEGATIVE); UROBILINOGEN NORMAL (NORMAL)
[2019-06-16] MEDS ORDERED: TORADOL10 MG PO (16:49)
[2019-06-16 17:29] VITALS: BP 147/70
== END 2019-06-16 17:32 | disposition home or self-care (01) ==
LOC: D.ER 13:20
PROVIDERS: Family Medicine
DX: M62.838 Other muscle spasm (principal); S39.012A Strain of muscle, fascia and tendon of lower back, initial encounter; I25.2 Old myocardial infarction; Z72.0 Tobacco use; K21.9 Gastro-esophageal reflux disease without esophagitis

== ENCOUNTER 2019-07-14 15:58 | Inpatient (IN) | payer MEDICARE ==
[~2019-07-14] VITALS: Ht 170.2 cm; Wt 52.2 kg
[~2019-07-14 15:58] MED LIST changes: +TORADOL10 MG PO
[2019-07-14 16:45] VITALS: BP 116/80; BMI 18.0
--- NOTE | 2019-07-14 16:56 | NUR ---
PATIENT ADMITTED TO ROOM 0. ADMISSION COMPLETE. AT BEDSIDE. EMESIS BAG GIVEN. STATES THROWS UP OFTEN D/T BELCHING BUT NO NAUSEA. MEDICAID SPECIALIST IN ROOM AWARE.
--- NOTE | 2019-07-14 17:30 | NUR ---
ATTEMPTED TO SITE IV TWICE WITHOUT SUCCESS. CALLED ER FOR IV. STATES LAINA WILL COME.
[2019-07-14 17:37] LABS: BASOPHILS 0.2 % (0-2); EOSINOPHILS 0.5 % (0-7); HEMATOCRIT 40.9 % (42.0-54.0); IMMATURE GRANULOCYTES 0.4 % (0-5); LYMPHOCYTES 11.3 % (15-50); MCH 30.2 pg (26.0-34.0); MCHC 34.2 g/dL (31.0-37.0); MCV 88.1 fL (80.0-100.0); MEAN PLATELET VOLUME 9.2 fL (7.4-10.4); NEUTROPHILS 81.6 % (40-80); RBC 4.64 10x6/uL (4.20-6.10); RDW 16.1 % (11.5-14.5); WBC 19.3 10x3/uL (4.8-10.8)
[2019-07-14 17:45] LABS: PLATELET COUNT 425 10x3/uL (130-400)
[2019-07-14 18:01] LABS: ALBUMIN 3.7 g/dL (3.4-5.0); ANION GAP 19.4 mmol/L (8-16); BILIRUBIN - TOTAL 0.2 mg/dL (0.2-1.3); CALCIUM 9.6 mg/dL (8.5-10.1); CARBON DIOXIDE 19.1 mmol/L (21.0-32.0); CREATININE - SERUM 1.7 mg/dL (0.6-1.3); MAGNESIUM - SERUM 2.2 mg/dL (1.8-2.4); POTASSIUM - SERUM 4.5 mmol/L (3.5-5.1); PROTEIN - SERUM 8.4 g/dL (6.4-8.2)
--- NOTE | 2019-07-14 18:21 | NUR ---
CONSENTS OBTAINED FOR PROCEDURE TOMORROW. DENIES QUESTIONS.
--- NOTE | 2019-07-14 18:30 | NUR ---
IV SITED TO LEFT HAND BY ER NURSE LAINA.
[2019-07-14 19:30] VITALS: BP 121/71
--- NOTE | 2019-07-14 20:00 | NUR ---
ALERT RESTING IN BED, IV FLUIDS STARTED ORDERED, DENIES PAIN OR NEEDS AT THIS TIME, SEE SHIFT ASSESSMENT, CALL LIGHT IN REACH
[2019-07-14 20:25] LABS: BILIRUBIN NEGATIVE (NEGATIVE); GLUCOSE NEGATIVE (NEGATIVE); KETONE NEGATIVE (NEGATIVE); NITRITE NEGATIVE (NEGATIVE); RED CELLS - URINE 0-5 /hpf (0-5); SPECIFIC GRAVITY 1.005 (1.005-1.020); UROBILINOGEN NORMAL (NORMAL); WHITE CELLS - URINE 0-5 /hpf (NEGATIVE)
[2019-07-14 20:27] LABS: BACTERIA MODERATE /hpf (NEGATIVE)
[2019-07-15] VITALS: BP 103/64
[2019-07-15 04:00] VITALS: BP 94/71
--- NOTE | 2019-07-15 08:00 | NUR ---
BACK FROM THIS EDG, ASKING FOR SOMETHING TO DRINK. STILL COUGHING THINGS UP, HE STATES "I WAS DOING THAT BEFORE, IT'S NOTHING NEW".
[2019-07-15 12:44] VITALS: BMI 18.0
[2019-07-15 13:23] VITALS: BP 113/62
[2019-07-15 16:00] LABS: BASOPHILS 0.2 % (0-2); EOSINOPHILS 0.7 % (0-7); IMMATURE GRANULOCYTES 0.4 % (0-5); LYMPHOCYTES 9.9 % (15-50); MCH 29.6 pg (26.0-34.0); MCV 89.6 fL (80.0-100.0); MEAN PLATELET VOLUME 8.9 fL (7.4-10.4); NEUTROPHILS 81.8 % (40-80); PLATELET COUNT 396 10x3/uL (130-400); RDW 16.2 % (11.5-14.5); WBC 14.9 10x3/uL (4.8-10.8)
[2019-07-15 16:02] LABS: HEMOGLOBIN 10.8 g/dL (13.5-17.5); RBC 3.65 10x6/uL (4.20-6.10)
[2019-07-15 16:03] LABS: HEMATOCRIT 32.7 % (42.0-54.0)
[2019-07-15 16:14] VITALS: BP 101/60
[2019-07-15 16:22] LABS: ALBUMIN 2.8 g/dL (3.4-5.0); BILIRUBIN - TOTAL 0.14 mg/dL (0.2-1.3); CALCIUM 8.6 mg/dL (8.5-10.1); CARBON DIOXIDE 22.2 mmol/L (21.0-32.0); MAGNESIUM - SERUM 2.1 mg/dL (1.8-2.4); PROTEIN - SERUM 6.8 g/dL (6.4-8.2)
[2019-07-15 16:25] LABS: ANION GAP 12.6 mmol/L (8-16); CREATININE - SERUM 1.2 mg/dL (0.6-1.3); POTASSIUM - SERUM 3.8 mmol/L (3.5-5.1)
[2019-07-15 20:00] VITALS: BP 116/58
--- NOTE | 2019-07-15 20:00 | NUR ---
ALERT SITTING UP IN BED, REQUESTING PAIN MED TO HELP REST, CONTINUES TO HAVE CONTINOUS BELCHING WITH VOMITING, SEE SHIFT ASSESSMENT, CALL LIGHT IN REACH
[2019-07-16] VITALS: BP 88/59
[2019-07-16 04:00] VITALS: BP 112/62
[2019-07-16 07:08] LABS: BASOPHILS 0.2 % (0-2); EOSINOPHILS 1.1 % (0-7); HEMATOCRIT 29.5 % (42.0-54.0); HEMOGLOBIN 9.6 g/dL (13.5-17.5); IMMATURE GRANULOCYTES 0.3 % (0-5); LYMPHOCYTES 10.1 % (15-50); MCHC 32.5 g/dL (31.0-37.0); MCV 89.1 fL (80.0-100.0); MEAN PLATELET VOLUME 9.7 fL (7.4-10.4); NEUTROPHILS 81.3 % (40-80); PLATELET COUNT 410 10x3/uL (130-400); RBC 3.31 10x6/uL (4.20-6.10); RDW 16.2 % (11.5-14.5); WBC 15.8 10x3/uL (4.8-10.8)
[2019-07-16 07:37] LABS: ALBUMIN 2.4 g/dL (3.4-5.0); ALKALINE PHOSPHATASE 77 U/L (30-120); ALT (SGPT) 15 U/L (10-68); AMYLASE - SERUM 108 U/L (25-115); BILIRUBIN - TOTAL 0.15 mg/dL (0.2-1.3); CALCIUM 8.1 mg/dL (8.5-10.1); CARBON DIOXIDE 18.3 mmol/L (21.0-32.0); CHLORIDE - SERUM 114 mmol/L (98-107); GLUCOSE 85 mg/dL (74-106); LIPASE 170 U/L (73-393); MAGNESIUM - SERUM 1.8 mg/dL (1.8-2.4); POTASSIUM - SERUM 4.1 mmol/L (3.5-5.1); PROTEIN - SERUM 5.6 g/dL (6.4-8.2); SODIUM 143 mmol/L (136-145)
[2019-07-16 07:38] LABS: CALC OSMOLALITY 284 mosm/kg (275-300); CREATININE - SERUM 0.8 mg/dL (0.6-1.3); UREA NITROGEN 16 mg/dL (7-18); eGFR NON AFRICAN AMERICAN > 90 mL/min (90-120)
[2019-07-16 08:04] VITALS: BP 82/42
--- NOTE | 2019-07-16 08:49 | NUR ---
HIS BP IS DOWN SOME THIS MORNING, HAD PAIN MED EARLIER. PB BETTER NOW 96/60. HE IS ALERT, TALKING. ASKING FOR SOMETHING TO HELP HIM SLEEP.
[2019-07-16 13:16] VITALS: BP 105/68
--- NOTE | 2019-07-16 14:29 | MORECARE ---
CASE MANAGEMENT DISCHARGE SUMMARY PATIENT: VANE CARRILLO RAY UNIT: [id number] ADM DATE: 07/14/19 AGE: 69 : 52 SEX: M ROOM/BED: D.2230 AUTHOR: LUIGI BRADY PHYSICIAN: REFERRING PHYSICIAN: ODETTE TALAMANTES MD DATE OF SERVICE: 07/16/19 Discharge Plan Patient Name: VANE CARRILLO [facility] : 1950 Planned Disposition: Home with Home Health Anticipated Discharge Date: Discharge Date: Expected LOS: Initial Reviewer: [email or web address] Initial Review Date: 07/16/2019 Generated: 07/16/19 3:28 pm DCPIA - Discharge Planning Initial Assessment Updated by [email or web address]: Chiquis Caldera on 07/16/19 2:27 pm * Is the patient Alert and Oriented? Yes * How many steps to enter\exit or inside your home? 4/0 * PCP Dr. Talamantes * Pharmacy [facility] * Preadmission Environment Home with Family * ADLs Partial Dependent * Partial ADLs (Assistance needed) Ambulation * Equipment Cane Ostomy Supplies Other Rolling Walker * Other Equipment Grabber * List name and contact numbers for known caregivers / representatives who currently or will assist patient after discharge: Vanessa Marcersen - [phone] * Verbal permission to speak to the caregivers and representatives has been obtained from the patient. Yes * Community resources currently utilized None * Please name any agencies selected above. Receives his ostomy supplies for ileal conduit from [facility] in the mail. * Additional services required to return to the preadmission environment? Yes * Can the patient safely return to the preadmission environment? Yes * Has this patient been hospitalized within the prior 30 days at any hospital? Yes Patient Name: VANE CARRILLO Page 00469 at 1429 All edits/amendments must be made on the electronic document DICTATION DATE: 07/16/191427 REHABILITATION CENTER MANAGER: DIOMEDES 07/16/191427 RPT#: [id number] DC DATE: STATUS: ADM IN [facility] [address] [place] [address] END OF REPORT
--- NOTE | 2019-07-16 14:47 | MORECARE ---
CASE MANAGEMENT DISCHARGE SUMMARY PATIENT: VANE CARRILLO UNIT: [id number] ADM DATE: 07/14/19 AGE: 69 : 52 SEX: M ROOM/BED: D.2230 AUTHOR: JOSE ANTONIO,DOC PHYSICIAN: REFERRING PHYSICIAN: ODETTE TALAMANTES MD DATE OF SERVICE: 07/16/19 Discharge Plan Patient Name: VANE CARRILLO Facility: [facility]:[place] : 1950 Planned Disposition: Home with Home Health Anticipated Discharge Date: Discharge Date: Expected LOS: Initial Reviewer: [email or web address] Initial Review Date: 07/16/2019 Generated: 07/16/19 3:46 pm DCP- Discharge Planning Updated by [email or web address]: Chiquis Caldera on 07/16/19 1:[address] Patient Name: VANE CARRILLO Admission Status: Elective Accout number: [id number] Admission Date: 07-14-2019 : 1950 Admission Diagnosis: Attending: YOUNG TALAMANTES Current LOS: 2 Anticipated DC Date: Planned Disposition: Home with Home Health Primary Insurance: [employer] CHOICE PPO MCR ADVANT Discharge Planning Comments: CM met with patient to complete initial dc planning assessment. CM educated patient on the CM role and verbal consent given by patient to complete assessment. Patient lives at home with his spouse. At discharge patient plans to return and feels this is a safe discharge. CM discussed availability of home health, rehab services, and medical equipment. Patient states he hopes to go back home and SUDEEP for [facility] signed. I notified bradley Michaud for [facility]. CM will continue to follow and will assist as needed with dc plans/needs. Dimensional Inspector: Chiquis Caldera DCPIA - Discharge Planning Initial Assessment Updated by [email or web address]: Chiquis Caldera on 07/16/19 2:27 pm * Is the patient Alert and Oriented? Yes * How many steps to enter\exit or inside your home? 4/0 * PCP Dr. Talamantes * Pharmacy [facility] * Preadmission Environment Home with Family * ADLs Partial Dependent * Partial ADLs (Assistance needed) Ambulation * Equipment Cane Ostomy Supplies Other Rolling Walker * Other Equipment Grabber * List name and contact numbers for known caregivers / representatives who currently or will assist patient after discharge: Vanessa Brooks [phone] * Verbal permission to speak to the caregivers and representatives has been obtained from the patient. Yes * Community resources currently utilized None * Please name any agencies selected above. Receives his ostomy supplies for ileal conduit from [facility] in the mail. * Additional services required to return to the preadmission environment? Yes * Can the patient safely return to the preadmission environment? Yes * Has this patient been hospitalized within the prior 30 days at any hospital? Yes Last DP export: 07/16/19 1:29 p Patient Name: VANE CARRILLO Page [phone] at 1447 All edits/amendments must be made on the electronic document DICTATION DATE: 07/16/191445 WEAPONS ENGINEER: DIOMEDES 07/16/191445 RPT#: [id number] DC DATE: STATUS: ADM IN [facility] [address] [place] [address] END OF REPORT
[2019-07-16 15:59] VITALS: BP 114/65
[2019-07-16 19:35] VITALS: Ht 170.2 cm; Wt 52.2 kg
--- NOTE | 2019-07-16 20:00 | NUR ---
ALERT RESTING IN BED, DENIES PAIN OR NEEDS AT THIS TIME, SEE SHIFT ASSESSMENT, CALL LIGHT IN REACH
[2019-07-16 21:15] VITALS: BP 109/61
[2019-07-17 01:44] VITALS: BP 112/70
[2019-07-17 05:10] LABS: BASOPHILS 0.2 % (0-2); EOSINOPHILS 0.7 % (0-7); HEMATOCRIT 29.3 % (42.0-54.0); HEMOGLOBIN 9.5 g/dL (13.5-17.5); IMMATURE GRANULOCYTES 0.3 % (0-5); LYMPHOCYTES 9.1 % (15-50); MCH 28.9 pg (26.0-34.0); MCHC 32.4 g/dL (31.0-37.0); MCV 89.1 fL (80.0-100.0); MEAN PLATELET VOLUME 9.2 fL (7.4-10.4); MONOCYTES 7.5 % (2-11); NEUTROPHILS 82.2 % (40-80); PLATELET COUNT 364 10x3/uL (130-400); RBC 3.29 10x6/uL (4.20-6.10); RDW 15.9 % (11.5-14.5); WBC 16.8 10x3/uL (4.8-10.8)
[2019-07-17 05:38] LABS: ALBUMIN 2.3 g/dL (3.4-5.0); ALKALINE PHOSPHATASE 71 U/L (30-120); ALT (SGPT) 14 U/L (10-68); AMYLASE - SERUM 92 U/L (25-115); BILIRUBIN - TOTAL 0.24 mg/dL (0.2-1.3); CALC OSMOLALITY 283 mosm/kg (275-300); CALCIUM 7.9 mg/dL (8.5-10.1); CARBON DIOXIDE 22.8 mmol/L (21.0-32.0); CHLORIDE - SERUM 114 mmol/L (98-107); CREATININE - SERUM 0.8 mg/dL (0.6-1.3); GLUCOSE 86 mg/dL (74-106); MAGNESIUM - SERUM 1.4 mg/dL (1.8-2.4); POTASSIUM - SERUM 3.5 mmol/L (3.5-5.1); PROTEIN - SERUM 5.6 g/dL (6.4-8.2); SODIUM 144 mmol/L (136-145); eGFR NON AFRICAN AMERICAN > 90 mL/min (90-120)
[2019-07-17 05:46] LABS: LIPASE 97 U/L (73-393); UREA NITROGEN 7 mg/dL (7-18)
[2019-07-17 06:48] VITALS: BP 101/60
[2019-07-17 09:01] VITALS: BP 102/61
--- NOTE | 2019-07-17 11:47 | NUR ---
I have reviewed this patient and I concur with the Shift Assessment completed by the Licensed Practical Nurse today this shift.
--- NOTE | 2019-07-17 13:04 | NUR ---
NUTRITION F/U CHART REVIEWED, PT VISIT. PT CONTINUES POOR INTAKE. ADDED ENSURE TO MEALS. PT STATES "DON'T KNOW IF I WILL KEEP IT DOWN BUT I'LL TRY." MAY NEED TO CONSIDER NUTRITION SUPPORT WITH PROCALAMINE OR POSSIBLY J TUBE. RD FOLLOWING
[2019-07-17 13:12] VITALS: BP 107/52
--- NOTE | 2019-07-17 13:17 | NUR ---
PT ON LIGHT FOR PAIN MEDS AND ZOFRAN, ADMINISTERED ZOFRAN AND ADVISED PT HE STILL HAD AN HOUR ON PAIN MEDS. CONTINUE WITH PLAN OF CARE
[2019-07-17 13:50] LABS: % SATURATION 14 % (15-55); IRON 23 ug/dl (35-150); TOTAL IRON BIND CAPACITY 163 ug/dl (260-445); UNSAT IRON BIND CAPACITY 140 ug/dl (150-375)
[2019-07-17 16:44] VITALS: BP 110/57
[2019-07-17 20:00] VITALS: BP 112/55
[2019-07-18] VITALS (7 sets, daily range): BP systolic 90–125; BP diastolic 40–69
[2019-07-18 06:02] LABS: BASOPHILS 0.2 % (0-2); EOSINOPHILS 0.8 % (0-7); HEMATOCRIT 27.2 % (42.0-54.0); HEMOGLOBIN 8.8 g/dL (13.5-17.5); IMMATURE GRANULOCYTES 0.3 % (0-5); LYMPHOCYTES 10.5 % (15-50); MCH 28.7 pg (26.0-34.0); MCHC 32.4 g/dL (31.0-37.0); MCV 88.6 fL (80.0-100.0); MEAN PLATELET VOLUME 9.4 fL (7.4-10.4); MONOCYTES 6.8 % (2-11); NEUTROPHILS 81.4 % (40-80); PLATELET COUNT 337 10x3/uL (130-400); RBC 3.07 10x6/uL (4.20-6.10); RDW 16.1 % (11.5-14.5); WBC 16.9 10x3/uL (4.8-10.8)
[2019-07-18 06:27] LABS: ALBUMIN 2.1 g/dL (3.4-5.0); ALKALINE PHOSPHATASE 64 U/L (30-120); ALT (SGPT) 11 U/L (10-68); AMYLASE - SERUM 78 U/L (25-115); BILIRUBIN - TOTAL 0.17 mg/dL (0.2-1.3); CALC OSMOLALITY 285 mosm/kg (275-300); CALCIUM 7.5 mg/dL (8.5-10.1); CARBON DIOXIDE 20.5 mmol/L (21.0-32.0); CHLORIDE - SERUM 114 mmol/L (98-107); CREATININE - SERUM 0.7 mg/dL (0.6-1.3); GLUCOSE 93 mg/dL (74-106); LIPASE 81 U/L (73-393); MAGNESIUM - SERUM 1.3 mg/dL (1.8-2.4); POTASSIUM - SERUM 3.4 mmol/L (3.5-5.1); PROTEIN - SERUM 4.9 g/dL (6.4-8.2); SODIUM 145 mmol/L (136-145); eGFR NON AFRICAN AMERICAN > 90 mL/min (90-120)
[2019-07-18 06:29] LABS: UREA NITROGEN 4 mg/dL (7-18)
--- NOTE | 2019-07-18 08:00 | NUR ---
REPLACING HIS ELECTROLYES THIS MORNING. HE IS STILL COUGHING AND SPITTING UP AFTER HE DRINKS SOMETHING. HE IS POSITIVE ABOUT HIS HEALTH ISSUES. ALERT AND DENIES ANY NEEDS AT THIS PRESENT TIME.
--- NOTE | 2019-07-18 12:59 | NUR ---
TUBING CHANGED ON THE PRIMARY TUBING AND SECONDARY TUBING.
[2019-07-19 04:00] VITALS: BP 119/62
[2019-07-19 05:35] LABS: BASOPHILS 0.2 % (0-2); EOSINOPHILS 0.8 % (0-7); HEMATOCRIT 26.5 % (42.0-54.0); HEMOGLOBIN 8.7 g/dL (13.5-17.5); IMMATURE GRANULOCYTES 0.3 % (0-5); LYMPHOCYTES 10.2 % (15-50); MCH 29.2 pg (26.0-34.0); MCHC 32.8 g/dL (31.0-37.0); MCV 88.9 fL (80.0-100.0); MEAN PLATELET VOLUME 9.4 fL (7.4-10.4); MONOCYTES 8.4 % (2-11); NEUTROPHILS 80.1 % (40-80); PLATELET COUNT 346 10x3/uL (130-400); RBC 2.98 10x6/uL (4.20-6.10); RDW 16.2 % (11.5-14.5)
[2019-07-19 06:04] LABS: ALKALINE PHOSPHATASE 57 U/L (30-120); ALT (SGPT) 13 U/L (10-68); AMYLASE - SERUM 68 U/L (25-115); BILIRUBIN - TOTAL 0.23 mg/dL (0.2-1.3); CALC OSMOLALITY 290 mosm/kg (275-300); CARBON DIOXIDE 24.1 mmol/L (21.0-32.0); CHLORIDE - SERUM 114 mmol/L (98-107); CREATININE - SERUM 0.7 mg/dL (0.6-1.3); GLUCOSE 111 mg/dL (74-106); LIPASE 81 U/L (73-393); MAGNESIUM - SERUM 1.6 mg/dL (1.8-2.4); PHOSPHOROUS 2.4 mg/dL (2.5-4.9); POTASSIUM - SERUM 3.6 mmol/L (3.5-5.1); PROTEIN - SERUM 5.5 g/dL (6.4-8.2); SODIUM 147 mmol/L (136-145); UREA NITROGEN 7 mg/dL (7-18); eGFR NON AFRICAN AMERICAN > 90 mL/min (90-120)
[2019-07-19 09:01] VITALS: BP 105/64
[2019-07-19 13:28] VITALS: BP 134/69
[2019-07-19 17:01] VITALS: BP 107/55
--- NOTE | 2019-07-19 20:00 | NUR ---
ALERT RRESTING IN BED, REQUESTING DILAUDID TO HELP WITH BELCHING, STATES ONLY THING THAT SEEMS TO HELP FOR A WHILE, SEE SHIFT ASSESSMENT, CALL LIGHT IN REACH
[2019-07-19 22:08] VITALS: BP 120/51
[2019-07-20] VITALS: BP 109/47
[2019-07-20 04:00] VITALS: BP 93/66
[2019-07-20 07:50] LABS: BASOPHILS 0.2 % (0-2); EOSINOPHILS 1.1 % (0-7); HEMATOCRIT 25.6 % (42.0-54.0); HEMOGLOBIN 8.4 g/dL (13.5-17.5); IMMATURE GRANULOCYTES 0.3 % (0-5); LYMPHOCYTES 12.2 % (15-50); MCHC 32.8 g/dL (31.0-37.0); MCV 88.3 fL (80.0-100.0); MEAN PLATELET VOLUME 9.8 fL (7.4-10.4); MONOCYTES 7.3 % (2-11); NEUTROPHILS 78.9 % (40-80); PLATELET COUNT 356 10x3/uL (130-400); WBC 14.2 10x3/uL (4.8-10.8)
[2019-07-20 08:29] LABS: ALBUMIN 2.1 g/dL (3.4-5.0); ALKALINE PHOSPHATASE 58 U/L (30-120); ALT (SGPT) 13 U/L (10-68); AMYLASE - SERUM 58 U/L (25-115); BILIRUBIN - TOTAL 0.13 mg/dL (0.2-1.3); CALCIUM 7.9 mg/dL (8.5-10.1); CARBON DIOXIDE 24.5 mmol/L (21.0-32.0); CHLORIDE - SERUM 112 mmol/L (98-107); CREATININE - SERUM 0.7 mg/dL (0.6-1.3); GLUCOSE 94 mg/dL (74-106); LIPASE 64 U/L (73-393); MAGNESIUM - SERUM 1.7 mg/dL (1.8-2.4); POTASSIUM - SERUM 3.7 mmol/L (3.5-5.1); PROTEIN - SERUM 5.5 g/dL (6.4-8.2); SODIUM 145 mmol/L (136-145); eGFR NON AFRICAN AMERICAN > 90 mL/min (90-120)
[2019-07-20 08:30] LABS: CALC OSMOLALITY 287 mosm/kg (275-300); PHOSPHOROUS 3.3 mg/dL (2.5-4.9); UREA NITROGEN 10 mg/dL (7-18)
[2019-07-20 08:45] VITALS: BP 112/52
[2019-07-20 12:29] VITALS: BP 122/56
[2019-07-20 16:30] VITALS: BP 110/48
[2019-07-20 20:00] VITALS: BP 94/43
--- NOTE | 2019-07-20 20:00 | NUR ---
ALERT RESTING IN BED, DENIES SARAHI OR NEEDS AT THIS TIME, CALL LIGHT IN REACH
[2019-07-21] VITALS: BP 100/47
[2019-07-21 04:00] VITALS: BP 109/50
[2019-07-21 05:52] LABS: BASOPHILS 0.3 % (0-2); EOSINOPHILS 1.5 % (0-7); HEMATOCRIT 25.4 % (42.0-54.0); HEMOGLOBIN 8.3 g/dL (13.5-17.5); IMMATURE GRANULOCYTES 0.2 % (0-5); LYMPHOCYTES 13.7 % (15-50); MCH 28.8 pg (26.0-34.0); MCHC 32.7 g/dL (31.0-37.0); MCV 88.2 fL (80.0-100.0); MONOCYTES 8.2 % (2-11); NEUTROPHILS 76.1 % (40-80); PLATELET COUNT 381 10x3/uL (130-400); RBC 2.88 10x6/uL (4.20-6.10); RDW 16.1 % (11.5-14.5); WBC 12.4 10x3/uL (4.8-10.8)
[2019-07-21 06:10] LABS: ALBUMIN 1.9 g/dL (3.4-5.0); ALKALINE PHOSPHATASE 48 U/L (30-120); BILIRUBIN - TOTAL 0.15 mg/dL (0.2-1.3); CALCIUM 7.8 mg/dL (8.5-10.1); CARBON DIOXIDE 26.5 mmol/L (21.0-32.0); CHLORIDE - SERUM 111 mmol/L (98-107); CREATININE - SERUM 0.7 mg/dL (0.6-1.3); GLUCOSE 97 mg/dL (74-106); MAGNESIUM - SERUM 1.9 mg/dL (1.8-2.4); POTASSIUM - SERUM 3.8 mmol/L (3.5-5.1); PROTEIN - SERUM 4.8 g/dL (6.4-8.2); SODIUM 144 mmol/L (136-145); eGFR NON AFRICAN AMERICAN > 90 mL/min (90-120)
[2019-07-21 06:23] LABS: ALT (SGPT) 20 U/L (10-68); CALC OSMOLALITY 287 mosm/kg (275-300); UREA NITROGEN 16 mg/dL (7-18)
[2019-07-21 08:39] VITALS: BP 99/44
--- NOTE | 2019-07-21 09:43 | NUR ---
HE IS AWAKE THIS MORNING. DENIES ANY PAIN, WANTING TO GO OUTSIDE TODAY.
[2019-07-21 12:53] VITALS: BP 104/49
--- NOTE | 2019-07-21 15:00 | NUR ---
THE PATIENT HAS NOT BEEN IN HIS ROOM FOR A WHILE NOW. MEDS ARE LATE, HE STATES "I HAVE BEEN OUTSIDE, IT'S SO NICE OUTSIDE" IV ANTIBIOTIC GIVEN AND PRN PAIN MED GIVEN.
[2019-07-21 16:01] VITALS: BP 112/54
[2019-07-21 20:00] VITALS: BP 87/46
[2019-07-22] VITALS: BP 92/44
[2019-07-22 04:00] VITALS: BP 95/54
[2019-07-22 04:30] LABS: BASOPHILS 0.2 % (0-2); EOSINOPHILS 1.9 % (0-7); HEMATOCRIT 24.9 % (42.0-54.0); HEMOGLOBIN 8.2 g/dL (13.5-17.5); IMMATURE GRANULOCYTES 0.2 % (0-5); LYMPHOCYTES 13.5 % (15-50); MCHC 32.9 g/dL (31.0-37.0); MEAN PLATELET VOLUME 10.2 fL (7.4-10.4); MONOCYTES 9.5 % (2-11); NEUTROPHILS 74.7 % (40-80); PLATELET COUNT 366 10x3/uL (130-400); RBC 2.83 10x6/uL (4.20-6.10); RDW 15.6 % (11.5-14.5); WBC 10.8 10x3/uL (4.8-10.8)
[2019-07-22 04:58] LABS: ALBUMIN 1.8 g/dL (3.4-5.0); ALKALINE PHOSPHATASE 48 U/L (30-120); ALT (SGPT) 22 U/L (10-68); BILIRUBIN - TOTAL 0.14 mg/dL (0.2-1.3); CALC OSMOLALITY 284 mosm/kg (275-300); CALCIUM 7.8 mg/dL (8.5-10.1); CARBON DIOXIDE 27.5 mmol/L (21.0-32.0); CHLORIDE - SERUM 109 mmol/L (98-107); CREATININE - SERUM 0.8 mg/dL (0.6-1.3); GLUCOSE 97 mg/dL (74-106); MAGNESIUM - SERUM 1.8 mg/dL (1.8-2.4); PHOSPHOROUS 3.1 mg/dL (2.5-4.9); POTASSIUM - SERUM 3.8 mmol/L (3.5-5.1); PROTEIN - SERUM 5.3 g/dL (6.4-8.2); SODIUM 142 mmol/L (136-145); UREA NITROGEN 17 mg/dL (7-18); eGFR NON AFRICAN AMERICAN > 90 mL/min (90-120)
[2019-07-22 08:41] VITALS: BP 112/75
--- NOTE | 2019-07-22 10:18 | NUR ---
NPO, WAITING ON HIS TEST. NEW IV STARTED EARLIER THIS MORNING, TO THE RIGHT ARM.
[2019-07-22 13:03] VITALS: BP 123/51
--- NOTE | 2019-07-22 15:45 | NUR ---
BACK FROM EGD. AWAKE, ALERT, TALKING TO HIS .
[2019-07-22 15:46] VITALS: BP 106/69
[2019-07-23 04:00] VITALS: BP 110/66
[2019-07-23 06:36] LABS: BASOPHILS 0.2 % (0-2); HEMATOCRIT 26.3 % (42.0-54.0); HEMOGLOBIN 8.4 g/dL (13.5-17.5); IMMATURE GRANULOCYTES 0.2 % (0-5); LYMPHOCYTES 15.9 % (15-50); MCH 28.7 pg (26.0-34.0); MCHC 31.9 g/dL (31.0-37.0); MCV 89.8 fL (80.0-100.0); MEAN PLATELET VOLUME 10.1 fL (7.4-10.4); NEUTROPHILS 72.7 % (40-80); PLATELET COUNT 386 10x3/uL (130-400); RBC 2.93 10x6/uL (4.20-6.10); RDW 15.8 % (11.5-14.5); WBC 9.5 10x3/uL (4.8-10.8)
[2019-07-23 06:53] LABS: ALKALINE PHOSPHATASE 53 U/L (30-120); CALCIUM 7.8 mg/dL (8.5-10.1); CHLORIDE - SERUM 109 mmol/L (98-107); CREATININE - SERUM 0.7 mg/dL (0.6-1.3); GLUCOSE 94 mg/dL (74-106); MAGNESIUM - SERUM 1.9 mg/dL (1.8-2.4); SODIUM 143 mmol/L (136-145); eGFR NON AFRICAN AMERICAN > 90 mL/min (90-120)
[2019-07-23 06:55] LABS: ALT (SGPT) 30 U/L (10-68); CALC OSMOLALITY 284 mosm/kg (275-300); UREA NITROGEN 12 mg/dL (7-18)
[2019-07-23 09:18] VITALS: BP 121/58
[2019-07-23 13:06] VITALS: BP 124/65
--- NOTE | 2019-07-23 14:43 | NUR ---
NUTRITION F/U PT TAKING FULL LIQUIDS AND ENSURE. STATES HE THROWS IT BACK UP. CLIMIMIX AT 75 CC/HR ON HOLD PT LOST IV ACCESS. SPOKE WITH MD ~ CLINIMIX AND IV FLUIDS. RD FOLLOWING
[2019-07-23 16:56] VITALS: BP 136/64
--- NOTE | 2019-07-23 17:38 | NUR ---
I have reviewed this patient and I concur with the Shift Assessment completed by the Licensed Practical Nurse today this shift.
[2019-07-23 20:00] VITALS: BP 98/65
[2019-07-24] VITALS: BP 119/65
[2019-07-24 04:00] VITALS: BP 110/63
[2019-07-24 05:16] LABS: BASOPHILS 0.5 % (0-2); EOSINOPHILS 2.1 % (0-7); HEMATOCRIT 25.7 % (42.0-54.0); HEMOGLOBIN 8.3 g/dL (13.5-17.5); IMMATURE GRANULOCYTES 0.1 % (0-5); LYMPHOCYTES 18.9 % (15-50); MCH 28.8 pg (26.0-34.0); MCHC 32.3 g/dL (31.0-37.0); MCV 89.2 fL (80.0-100.0); MONOCYTES 10.5 % (2-11); NEUTROPHILS 67.9 % (40-80); PLATELET COUNT 409 10x3/uL (130-400); RBC 2.88 10x6/uL (4.20-6.10); RDW 15.7 % (11.5-14.5); WBC 8.2 10x3/uL (4.8-10.8)
[2019-07-24 05:41] LABS: ALKALINE PHOSPHATASE 57 U/L (30-120); ALT (SGPT) 35 U/L (10-68); BILIRUBIN - TOTAL 0.14 mg/dL (0.2-1.3); CALC OSMOLALITY 284 mosm/kg (275-300); CALCIUM 7.9 mg/dL (8.5-10.1); CARBON DIOXIDE 27.9 mmol/L (21.0-32.0); CHLORIDE - SERUM 109 mmol/L (98-107); CREATININE - SERUM 0.8 mg/dL (0.6-1.3); GLUCOSE 95 mg/dL (74-106); MAGNESIUM - SERUM 1.9 mg/dL (1.8-2.4); POTASSIUM - SERUM 3.4 mmol/L (3.5-5.1); PROTEIN - SERUM 5.6 g/dL (6.4-8.2); SODIUM 143 mmol/L (136-145); UREA NITROGEN 12 mg/dL (7-18); eGFR NON AFRICAN AMERICAN > 90 mL/min (90-120)
[2019-07-24 09:03] VITALS: BP 114/63
[2019-07-24 12:10] VITALS: BP 114/55
--- NOTE | 2019-07-24 13:22 | NUR ---
PT ASKED TO BE UNHOOKED FROM IV, PT IS TAKING STROLL WITH SPOUSE, NO NEEDS VOICED, CL IN REACH CONTINUE WITH PLAN OF CARE
[2019-07-24 17:24] VITALS: BP 116/64
--- NOTE | 2019-07-24 18:45 | NUR ---
I have reviewed this patient and I concur with the Shift Assessment completed by the Licensed Practical Nurse today this shift.
[2019-07-24 20:00] VITALS: BP 130/70
--- NOTE | 2019-07-24 20:00 | NUR ---
ALERT RESTING IN BED, DENIES PAIN OR NEEDS AT THIS TIME, SEE SHIFT ASSESSMENT, CALL LIGHT IN REACH
[2019-07-25] VITALS: BP 120/67
[2019-07-25 04:00] VITALS: BP 119/60
[2019-07-25 05:34] LABS: BASOPHILS 0.1 % (0-2); EOSINOPHILS 2.7 % (0-7); HEMATOCRIT 25.6 % (42.0-54.0); HEMOGLOBIN 8.3 g/dL (13.5-17.5); IMMATURE GRANULOCYTES 0.2 % (0-5); LYMPHOCYTES 17.1 % (15-50); MCHC 32.4 g/dL (31.0-37.0); MCV 89.5 fL (80.0-100.0); MEAN PLATELET VOLUME 9.8 fL (7.4-10.4); MONOCYTES 9.4 % (2-11); NEUTROPHILS 70.5 % (40-80); PLATELET COUNT 391 10x3/uL (130-400); RBC 2.86 10x6/uL (4.20-6.10); RDW 15.8 % (11.5-14.5)
[2019-07-25 05:55] LABS: ALKALINE PHOSPHATASE 53 U/L (30-120); BILIRUBIN - TOTAL 0.06 mg/dL (0.2-1.3); CALC OSMOLALITY 284 mosm/kg (275-300); CALCIUM 7.7 mg/dL (8.5-10.1); CARBON DIOXIDE 27.6 mmol/L (21.0-32.0); CHLORIDE - SERUM 110 mmol/L (98-107); CREATININE - SERUM 0.7 mg/dL (0.6-1.3); GLUCOSE 100 mg/dL (74-106); MAGNESIUM - SERUM 1.8 mg/dL (1.8-2.4); POTASSIUM - SERUM 3.9 mmol/L (3.5-5.1); PROTEIN - SERUM 4.9 g/dL (6.4-8.2); SODIUM 143 mmol/L (136-145); UREA NITROGEN 13 mg/dL (7-18); eGFR NON AFRICAN AMERICAN > 90 mL/min (90-120)
[2019-07-25 06:14] LABS: ALT (SGPT) 25 U/L (10-68)
--- NOTE | 2019-07-25 07:33 | NUR ---
PT JUST GIVEN PAIN MEDICATION AT START OF SHIFT, PT IS LYING IN BED RESTING. NO S/SX OF DISTRESS, CL IN REACH CONTINUE WITH PLAN OF CARE
--- NOTE | 2019-07-25 07:52 | NUR ---
PATIENT IS LYING ON LEFT SIDE RESTING.PATIENT IS WITHOUT DISTRESS
--- NOTE | 2019-07-25 08:23 | NUR ---
I have reviewed this patient and I concur with the Shift Assessment completed by the Licensed Practical Nurse today this shift.
[2019-07-25 08:44] VITALS: BP 128/56
[2019-07-25 16:28] VITALS: BP 107/46
[2019-07-25 20:00] VITALS: BP 107/62
--- NOTE | 2019-07-25 20:00 | NUR ---
ALERT RESTING IN BED REQUESTIGN DILAUDID AND ZOFRAN TO HELP RELIEVE BELCHING SO CAN SLEEP A LITTLE, SEE ASSESSMENTCALL LIGHT IN REACH
[2019-07-26] VITALS: BP 109/62
[2019-07-26 04:00] VITALS: BP 115/57
[2019-07-26 04:58] LABS: BASOPHILS 0.2 % (0-2); EOSINOPHILS 2.5 % (0-7); HEMATOCRIT 26.1 % (42.0-54.0); HEMOGLOBIN 8.3 g/dL (13.5-17.5); IMMATURE GRANULOCYTES 0.1 % (0-5); LYMPHOCYTES 18.4 % (15-50); MCH 28.3 pg (26.0-34.0); MCHC 31.8 g/dL (31.0-37.0); MCV 89.1 fL (80.0-100.0); MEAN PLATELET VOLUME 9.5 fL (7.4-10.4); MONOCYTES 7.8 % (2-11); PLATELET COUNT 387 10x3/uL (130-400); RBC 2.93 10x6/uL (4.20-6.10); RDW 15.7 % (11.5-14.5); WBC 8.9 10x3/uL (4.8-10.8)
[2019-07-26 05:21] LABS: ALKALINE PHOSPHATASE 51 U/L (30-120); ALT (SGPT) 23 U/L (10-68); BILIRUBIN - TOTAL 0.09 mg/dL (0.2-1.3); CALC OSMOLALITY 282 mosm/kg (275-300); CALCIUM 7.8 mg/dL (8.5-10.1); CARBON DIOXIDE 24.4 mmol/L (21.0-32.0); CHLORIDE - SERUM 109 mmol/L (98-107); CREATININE - SERUM 0.8 mg/dL (0.6-1.3); GLUCOSE 103 mg/dL (74-106); POTASSIUM - SERUM 3.6 mmol/L (3.5-5.1); PROTEIN - SERUM 5.4 g/dL (6.4-8.2); SODIUM 141 mmol/L (136-145); eGFR NON AFRICAN AMERICAN > 90 mL/min (90-120)
[2019-07-26 05:24] LABS: UREA NITROGEN 17 mg/dL (7-18)
[2019-07-26 07:58] VITALS: BP 120/63
[2019-07-26 12:24] VITALS: BP 119/65
--- NOTE | 2019-07-26 12:54 | NUR ---
I have reviewed this patient and I concur with the Shift Assessment completed by the Licensed Practical Nurse today this shift.
--- NOTE | 2019-07-26 13:28 | NUR ---
PT ON CL ASKED TO BE UNHOOKED SO HE MAY GO OUTSIDE WITH HIS SPOUSE. NO S/SX OF DISTRESS, NO OTHER NEEDS VOICED AT THIS TIME, CONTINUE WITH PLAN OF CARE
--- NOTE | 2019-07-26 15:12 | NUR ---
PT REQUESTED PAIN MEDICATION. STATED HE WAS AT AN 8 GOING UP TO A 9, ADMINISTERED PRN PAIN MEDICATION WELL SCHEDULED MEDS, NO OTHER NEEDS VOICED, CONTINUE WITH PLAN OF CARE
[2019-07-26 16:28] VITALS: BP 86/54
[2019-07-26 19:43] VITALS: BP 102/61
--- NOTE | 2019-07-26 21:29 | NUR ---
WATCHING TV QUEITLY WITH NO DISTRESS NOTED. IV TO LFA INTACT WITHOUT REDNESS OR EDEMA NOTED.UP AD MIRYAM IN ROOM.NO COMPLAITNS VOCIED.
[2019-07-27] VITALS: BP 100/46
--- NOTE | 2019-07-27 03:30 | NUR ---
I have reviewed this patient and I concur with the Shift Assessment completed by the Licensed Practical Nurse today this shift.
[2019-07-27 04:00] VITALS: BP 109/55
[2019-07-27 06:13] LABS: BASOPHILS 0.2 % (0-2); EOSINOPHILS 3.2 % (0-7); HEMOGLOBIN 8.4 g/dL (13.5-17.5); IMMATURE GRANULOCYTES 0.6 % (0-5); LYMPHOCYTES 14.2 % (15-50); MCH 29.1 pg (26.0-34.0); MCHC 32.3 g/dL (31.0-37.0); MEAN PLATELET VOLUME 10.1 fL (7.4-10.4); MONOCYTES 7.7 % (2-11); NEUTROPHILS 74.1 % (40-80); PLATELET COUNT 412 10x3/uL (130-400); RBC 2.89 10x6/uL (4.20-6.10); RDW 16.2 % (11.5-14.5); WBC 10.2 10x3/uL (4.8-10.8)
[2019-07-27 06:27] LABS: ALBUMIN 2.1 g/dL (3.4-5.0); ALKALINE PHOSPHATASE 53 U/L (30-120); ALT (SGPT) 21 U/L (10-68); BILIRUBIN - TOTAL 0.04 mg/dL (0.2-1.3); CALC OSMOLALITY 279 mosm/kg (275-300); CALCIUM 8.1 mg/dL (8.5-10.1); CHLORIDE - SERUM 108 mmol/L (98-107); CREATININE - SERUM 0.8 mg/dL (0.6-1.3); GLUCOSE 103 mg/dL (74-106); MAGNESIUM - SERUM 1.9 mg/dL (1.8-2.4); PHOSPHOROUS 2.8 mg/dL (2.5-4.9); POTASSIUM - SERUM 3.9 mmol/L (3.5-5.1); PROTEIN - SERUM 5.6 g/dL (6.4-8.2); SODIUM 139 mmol/L (136-145); UREA NITROGEN 19 mg/dL (7-18); eGFR NON AFRICAN AMERICAN > 90 mL/min (90-120)
[2019-07-27 09:43] VITALS: BP 115/68
[2019-07-27 12:53] VITALS: BP 96/56
--- NOTE | 2019-07-27 14:51 | NUR ---
I have reviewed this patient and I concur with the Shift Assessment completed by the Licensed Practical Nurse today this shift.
[2019-07-27 17:53] VITALS: BP 111/56
[2019-07-27 20:00] VITALS: BP 97/52
--- NOTE | 2019-07-27 20:00 | NUR ---
UP AD MIRYAM IN ROOM. RESP UNALBORED. NO DISTRESS NOTED. IV TO LFA INTACT WITHOUT REDNESS OR EDEMA NOTED. NO COMPALITNS VOICED.
[2019-07-28] VITALS: BP 98/44
[2019-07-28 04:00] VITALS: BP 110/46
--- NOTE | 2019-07-28 04:02 | NUR ---
I have reviewed this patient and I concur with the Shift Assessment completed by the Licensed Practical Nurse today this shift.
[2019-07-28 05:44] LABS: BASOPHILS 0.3 % (0-2); EOSINOPHILS 2.9 % (0-7); HEMATOCRIT 24.6 % (42.0-54.0); HEMOGLOBIN 7.9 g/dL (13.5-17.5); IMMATURE GRANULOCYTES 0.5 % (0-5); LYMPHOCYTES 15.7 % (15-50); MCH 28.7 pg (26.0-34.0); MCHC 32.1 g/dL (31.0-37.0); MCV 89.5 fL (80.0-100.0); MEAN PLATELET VOLUME 9.7 fL (7.4-10.4); MONOCYTES 7.6 % (2-11); PLATELET COUNT 400 10x3/uL (130-400); RBC 2.75 10x6/uL (4.20-6.10); RDW 16.4 % (11.5-14.5); WBC 11.1 10x3/uL (4.8-10.8)
[2019-07-28 07:07] LABS: ALKALINE PHOSPHATASE 49 U/L (30-120); ALT (SGPT) 20 U/L (10-68); BILIRUBIN - TOTAL 0.06 mg/dL (0.2-1.3); CALC OSMOLALITY 279 mosm/kg (275-300); CALCIUM 7.9 mg/dL (8.5-10.1); CARBON DIOXIDE 25.2 mmol/L (21.0-32.0); CHLORIDE - SERUM 107 mmol/L (98-107); CREATININE - SERUM 0.7 mg/dL (0.6-1.3); GLUCOSE 100 mg/dL (74-106); MAGNESIUM - SERUM 1.7 mg/dL (1.8-2.4); POTASSIUM - SERUM 4.2 mmol/L (3.5-5.1); PROTEIN - SERUM 4.8 g/dL (6.4-8.2); SODIUM 139 mmol/L (136-145); UREA NITROGEN 18 mg/dL (7-18); eGFR NON AFRICAN AMERICAN > 90 mL/min (90-120)
--- NOTE | 2019-07-28 07:36 | NUR ---
ALERT AND ORIENTED. LUNGS CLEAR BILATERALLY. HEART SOUNDS S1 AND S2 HEARD IN ALL KING. BOWEL SOUNDS ACTIVE X 4. SKIN INTACT WITHOUT REDNESS. UROSTOMY TO RIGHT SIDE PATENT. IV TO LFA PATENT WTIHOUT REDNESS. DENIES PAIN. DENIES NEEDS. BED LOW. CALL CISNEROS AND PERSONAL ITEMS IN REACH. WILL CONTINUE TO MONITOR.
[2019-07-28 09:14] VITALS: BP 116/55
--- NOTE | 2019-07-28 12:03 | NUR ---
RESTING IN BED. DENIES NEEDS. WILL CONTINEU TO MONITOR.
[2019-07-28 12:52] VITALS: BP 102/52
--- NOTE | 2019-07-28 14:57 | NUR ---
Nutrition Follow-up: Patient was in restroom both times I attempted to visit with him. Chart reviewed, noted that he is scheduled for esophageal stent tomorrow. Diet: Full Liquid + Ensure with meals PO intake: 100% x last 3 meals recorded No BM recorded since admit x 2 weeks now?? WT: 115# (07/15/19), no new WT Meds and labs reviewed Recommend continue to ADAT after stent placement. Continue oral nutrition supplement. RD following.
[2019-07-28 17:13] VITALS: BP 110/56
--- NOTE | 2019-07-28 18:02 | NUR ---
NEW UROSTOMY BAG ATTATCHED, URINE SAMPLE OBTAINED AND TAKEN TO LAB.
[2019-07-28 19:23] LABS: BILIRUBIN NEGATIVE (NEGATIVE); GLUCOSE NEGATIVE (NEGATIVE); KETONE NEGATIVE (NEGATIVE); NITRITE NEGATIVE (NEGATIVE); SPECIFIC GRAVITY 1.005 (1.005-1.020); UROBILINOGEN NORMAL (NORMAL)
[2019-07-28 20:00] VITALS: BP 104/48
[2019-07-29] VITALS: BP 110/67
[2019-07-29 04:00] VITALS: BP 137/74
--- NOTE | 2019-07-29 05:45 | NUR ---
I have reviewed this patient and I concur with the Shift Assessment completed by the Licensed Practical Nurse today this shift.
[2019-07-29 05:51] LABS: BASOPHILS 0.3 % (0-2); EOSINOPHILS 2.2 % (0-7); IMMATURE GRANULOCYTES 0.5 % (0-5); LYMPHOCYTES 16.2 % (15-50); MCH 28.5 pg (26.0-34.0); MCHC 32.5 g/dL (31.0-37.0); MCV 87.9 fL (80.0-100.0); MEAN PLATELET VOLUME 9.7 fL (7.4-10.4); MONOCYTES 7.2 % (2-11); NEUTROPHILS 73.6 % (40-80); PLATELET COUNT 463 10x3/uL (130-400); RDW 17.7 % (11.5-14.5); WBC 10.7 10x3/uL (4.8-10.8)
[2019-07-29 06:20] LABS: HEMATOCRIT 31.1 % (42.0-54.0); HEMOGLOBIN 10.1 g/dL (13.5-17.5); RBC 3.54 10x6/uL (4.20-6.10)
[2019-07-29 06:26] LABS: ALBUMIN 2.4 g/dL (3.4-5.0); ALKALINE PHOSPHATASE 62 U/L (30-120); ALT (SGPT) 22 U/L (10-68); BILIRUBIN - TOTAL 0.16 mg/dL (0.2-1.3); CALC OSMOLALITY 283 mosm/kg (275-300); CALCIUM 8.6 mg/dL (8.5-10.1); CARBON DIOXIDE 27.9 mmol/L (21.0-32.0); CHLORIDE - SERUM 106 mmol/L (98-107); GLUCOSE 91 mg/dL (74-106); MAGNESIUM - SERUM 1.8 mg/dL (1.8-2.4); PHOSPHOROUS 3.5 mg/dL (2.5-4.9); POTASSIUM - SERUM 3.7 mmol/L (3.5-5.1); SODIUM 142 mmol/L (136-145); UREA NITROGEN 15 mg/dL (7-18)
[2019-07-29 06:34] LABS: CREATININE - SERUM 0.9 mg/dL (0.6-1.3); PROTEIN - SERUM 6.6 g/dL (6.4-8.2); eGFR NON AFRICAN AMERICAN 89 mL/min (90-120)
[2019-07-29 10:09] VITALS: BP 122/64
[2019-07-29 13:01] VITALS: BP 125/71
--- NOTE | 2019-07-29 15:43 | NUR ---
I have reviewed this patient and I concur with the Shift Assessment completed by the Licensed Practical Nurse today this shift.
[2019-07-29 17:24] VITALS: BP 103/52
[2019-07-30 04:00] VITALS: BP 131/64
[2019-07-30 06:52] LABS: BASOPHILS 0.1 % (0-2); EOSINOPHILS 0.9 % (0-7); HEMOGLOBIN 9.2 g/dL (13.5-17.5); IMMATURE GRANULOCYTES 0.2 % (0-5); LYMPHOCYTES 13.1 % (15-50); MCH 28.4 pg (26.0-34.0); MCHC 32.9 g/dL (31.0-37.0); MCV 86.4 fL (80.0-100.0); MONOCYTES 7.2 % (2-11); NEUTROPHILS 78.5 % (40-80); PLATELET COUNT 472 10x3/uL (130-400); RBC 3.24 10x6/uL (4.20-6.10)
[2019-07-30 07:15] LABS: WBC 13.4 10x3/uL (4.8-10.8)
[2019-07-30 07:18] LABS: ALBUMIN 2.2 g/dL (3.4-5.0); ALKALINE PHOSPHATASE 56 U/L (30-120); ALT (SGPT) 17 U/L (10-68); BILIRUBIN - TOTAL 0.17 mg/dL (0.2-1.3); CALC OSMOLALITY 279 mosm/kg (275-300); CALCIUM 8.4 mg/dL (8.5-10.1); CARBON DIOXIDE 24.4 mmol/L (21.0-32.0); CHLORIDE - SERUM 106 mmol/L (98-107); CREATININE - SERUM 0.8 mg/dL (0.6-1.3); GLUCOSE 91 mg/dL (74-106); MAGNESIUM - SERUM 1.7 mg/dL (1.8-2.4); POTASSIUM - SERUM 3.6 mmol/L (3.5-5.1); PROTEIN - SERUM 5.9 g/dL (6.4-8.2); SODIUM 140 mmol/L (136-145); UREA NITROGEN 15 mg/dL (7-18); eGFR NON AFRICAN AMERICAN > 90 mL/min (90-120)
[2019-07-30 09:32] VITALS: BP 137/68
[2019-07-30 12:40] VITALS: BP 145/74
[2019-07-30] MEDS ORDERED: LEVAQUIN750 MG PO (13:06)
--- NOTE | 2019-07-30 13:17 | MORECARE ---
CASE MANAGEMENT DISCHARGE SUMMARY PATIENT: VANE CARRILLO UNIT: [id number] ADM DATE: 07/14/19 AGE: 69 : 52 SEX: M ROOM/BED: D.2230 AUTHOR: LUIGI BRADY PHYSICIAN: REFERRING PHYSICIAN: ODETTE TALAMANTES MD DATE OF SERVICE: 07/30/19 Discharge Plan Patient Name: VANE CARRILLO Facility: [facility]:[place] : 1950 Planned Disposition: Home with Home Health Anticipated Discharge Date: Discharge Date: Expected LOS: Initial Reviewer: [email or web address] Initial Review Date: 07/16/2019 Generated: 07/30/19 2:16 pm Comments DCP- Discharge Planning Updated by [email or web address]: Chiquis Caldera on 07/30/19 12:[address] Discharging home today. States his is picking him up. Declines home health. Denies needs. No needs identified. DCP- Discharge Planning Updated by [id number]: Chiquis Caldera on 07/16/19 12:[address] Patient Name: VANE CARRILLO Admission Status: Elective Accout number: [id number] Admission Date: 07-14-2019 : 1950 Admission Diagnosis: Attending: YOUNG TALAMANTES Current LOS: 2 Anticipated DC Date: Planned Disposition: Home with Home Health Primary Insurance: [employer] CHOICE PPO MCR ADVANT Discharge Planning Comments: CM met with patient to complete initial dc planning assessment. CM educated patient on the CM role and verbal consent given by patient to complete assessment. Patient lives at home with his spouse. At discharge patient plans to return and feels this is a safe discharge. CM discussed availability of home health, rehab services, and medical equipment. Patient states he hopes to go back home and SUDEEP for Pat[facility] signed. I notified bradley Michaud for [facility]. CM will continue to follow and will assist as needed with dc plans/needs. Wrap Knitting Machine Operator: Chiquis Caldera DCPIA - Discharge Planning Initial Assessment Updated by [id number]: Chiquis Caldera on 07/16/19 2:27 pm * Is the patient Alert and Oriented? Yes * How many steps to enter\exit or inside your home? 4/0 * PCP Dr. Talamantes * Pharmacy [facility] * Preadmission Environment Home with Family * ADLs Partial Dependent * Partial ADLs (Assistance needed) Ambulation * Equipment Cane Ostomy Supplies Other Rolling Walker * Other Equipment Grabber * List name and contact numbers for known caregivers / representatives who currently or will assist patient after discharge: Vanessa Brooks - [phone] * Verbal permission to speak to the caregivers and representatives has been obtained from the patient. Yes * Community resources currently utilized None * Please name any agencies selected above. Receives his ostomy supplies for ileal conduit from [facility] in the mail. * Additional services required to return to the preadmission environment? Yes * Can the patient safely return to the preadmission environment? Yes * Has this patient been hospitalized within the prior 30 days at any hospital? Yes Coverage Notice Reviewer: [id number] Aye Caldera Notice Issued Date-Time: 07/16/2019 15:04 Notice Type: Patient Choice Letter Notice Delivered To: Patient Relationship to Patient: Self Horseradish Maker Name: Delivery Method: HAND - Hand Delivered Gladys Days: Prior Verbal Notification: Recipient Understood Notice: Yes Recipient Signature: Yes Med Rec Note Co-signed by Attending: Coverage Notice Comment: SUDEEP KRISHNA Reviewer: [id number] Caldera Notice Issued Date-Time: 07/30/2019 13:10 Notice Type: IM Discharge Notice Notice Delivered To: Patient Relationship to Patient: Self Horseradish Maker Name: Delivery Method: HAND - Hand Delivered Gladys Days: Prior Verbal Notification: Recipient Understood Notice: Yes Recipient Signature: Yes Med Rec Note Co-signed by Attending: Coverage Notice Comment: IMM explained, signed, given, copy placed in MR Reviewer: [id number] Caldera Notice Issued Date-Time: 07/30/2019 13:10 Notice Type: Patient Choice Letter Notice Delivered To: Patient Relationship to Patient: Self Horseradish Maker Name: Delivery Method: HAND - Hand Delivered Gladys Days: Prior Verbal Notification: Recipient Understood Notice: Yes Recipient Signature: Yes Med Rec Note Co-signed by Attending: Coverage Notice Comment: Gillian Aviles DP export: 07/16/19 12:47 p Patient Name: VANE CARRILLO Page [phone] at 1317 All edits/amendments must be made on the electronic document DICTATION DATE: 07/30/19 1316 CALCINER FEEDER: DM 07/30/19 1316 RPT#: [id number] DC DATE: STATUS: ADM IN [facility] [address] [place] [address] END OF REPORT
--- NOTE | 2019-07-30 13:47 | NUR ---
I have reviewed this patient and I concur with the Shift Assessment completed by the Licensed Practical Nurse today this shift.
--- NOTE | 2019-07-30 17:06 | NUR ---
PT DC HOME, WENT OVER DC INSTRUCTIONS AND FOLLOW UP WITH PT, DC IV WITH CATHETER INTACT, ALL QUESTIONS ANSWERED. TOOK PT DOWN VIA WC
--- NOTE | 2019-08-01 08:31 | MORECARE ---
CASE MANAGEMENT DISCHARGE SUMMARY PATIENT: VANE CARRILLO UNIT: [id number] ADM DATE: 07/14/19 AGE: 69 : 54 SEX: M ROOM/BED: D.2230 AUTHOR: JOSE ANTONIO,LUIGI PHYSICIAN: REFERRING PHYSICIAN: ODETTE TALAMANTES MD DATE OF SERVICE: 08/01/19 Discharge Plan Patient Name: VANE CARRILLO Facility: [facility]:[place] : 1950 Planned Disposition: Home with Home Health Anticipated Discharge Date: Discharge Date: 07/30/2019 Expected LOS: 0 Initial Reviewer: [email or web address] Initial Review Date: 07/16/2019 Generated: 08/01/19 9:30 am Comments DCP- Discharge Planning Updated by [id number]: Chiquis Caldera on 07/30/19 12:[address] Discharging home today. States his is picking him up. Declines home health. Denies needs. No needs identified. DCP- Discharge Planning Updated by [id number]: Chiquis Caldera on 07/16/19 12:[address] Patient Name: VANE CARRILLO Admission Status: Elective Accout number: [id number] Admission Date: 07-14-2019 : 1950 Admission Diagnosis: Attending: YOUNG TALAMANTES Current LOS: 2 Anticipated DC Date: Planned Disposition: Home with Home Health Primary Insurance: [employer] CHOICE PPO MCR ADVANT Discharge Planning Comments: CM met with patient to complete initial dc planning assessment. CM educated patient on the CM role and verbal consent given by patient to complete assessment. Patient lives at home with his spouse. At discharge patient plans to return and feels this is a safe discharge. CM discussed availability of home health, rehab services, and medical equipment. Patient states he hopes to go back home and SUDEEP for Patrice [facility] signed. I notified bradley Michaud for [facility]. CM will continue to follow and will assist as needed with dc plans/needs. Redeye Gunner: Chiquis Caldera DCPIA - Discharge Planning Initial Assessment Updated by [id number]: Chiquis Caldera on 07/16/19 2:27 pm * Is the patient Alert and Oriented? Yes * How many steps to enter\exit or inside your home? 4/0 * PCP Dr. Talamantes * Pharmacy [facility] * Preadmission Environment Home with Family * ADLs Partial Dependent * Partial ADLs (Assistance needed) Ambulation * Equipment Cane Ostomy Supplies Other Rolling Walker * Other Equipment Grabber * List name and contact numbers for known caregivers / representatives who currently or will assist patient after discharge: Vanessa Brooks - [phone] * Verbal permission to speak to the caregivers and representatives has been obtained from the patient. Yes * Community resources currently utilized None * Please name any agencies selected above. Receives his ostomy supplies for ileal conduit from [facility] in the mail. * Additional services required to return to the preadmission environment? Yes * Can the patient safely return to the preadmission environment? Yes * Has this patient been hospitalized within the prior 30 days at any hospital? Yes Coverage Notice Reviewer: [email or web address] Aye Caldera Notice Issued Date-Time: 07/16/2019 15:04 Notice Type: Patient Choice Letter Notice Delivered To: Patient Relationship to Patient: Self Piling Cutter Name: Delivery Method: HAND - Hand Delivered Gladys Days: Prior Verbal Notification: Recipient Understood Notice: Yes Recipient Signature: Yes Med Rec Note Co-signed by Attending: Coverage Notice Comment: SUDEEP KRISHNA Reviewer: [id number] Caldera Notice Issued Date-Time: 07/30/2019 13:10 Notice Type: IM Discharge Notice Notice Delivered To: Patient Relationship to Patient: Self Piling Cutter Name: Delivery Method: HAND - Hand Delivered Gladys Days: Prior Verbal Notification: Recipient Understood Notice: Yes Recipient Signature: Yes Med Rec Note Co-signed by Attending: Coverage Notice Comment: IMM explained, signed, given, copy placed in MR Reviewer: [id number] Caldera Notice Issued Date-Time: 07/30/2019 13:10 Notice Type: Patient Choice Letter Notice Delivered To: Patient Relationship to Patient: Self Piling Cutter Name: Delivery Method: HAND - Hand Delivered Gladys Days: Prior Verbal Notification: Recipient Understood Notice: Yes Recipient Signature: Yes Med Rec Note Co-signed by Attending: Coverage Notice Comment: Gillian Aviles DP export: 07/30/19 12:17 p Patient Name: VANE CARRILLO Page [phone] at 0831 All edits/amendments must be made on the electronic document DICTATION DATE: 08/01/19829 CLAIMS SUPERVISOR: DIOMEDES 08/01/19829 RPT#: [id number] DC DATE:07/30/19 STATUS: DIS IN [facility] [address] [place] [address] END OF REPORT
--- NOTE | 2019-08-01 18:23 | OP ---
PATIENT NAME: VANE CARRILLO MEDICAL RECORD: [id number] :[birth year] LOCATION:D.MS [address]30 ADMISSION DATE:07/14/19 SURGEON: DAVID PETERSON MD DATE OF OPERATION: 07/29/2019 PREOPERATIVE DIAGNOSIS: Nearly obstructing distal esophageal mass. POSTOPERATIVE DIAGNOSIS: Nearly obstructing distal esophageal mass. PROCEDURES: 1. Esophagogastroduodenoscopy with cold endoscopic biopsies as well as hot endoscopic biopsies utilizing a snare of the distal esophageal mass. 2. Deployment of 23 mm x 105 mm [employer] partially covered stent under fluoroscopy. 3. Immediate surgeon interpretation of the fluoroscopic images. SURGEON: David Peterson MD CUTTING MACHINE OPERATOR: None. BLOOD LOSS: Minimal. ANESTHESIA: General. COMPLICATIONS: None. The risks, possible complications and alternatives to the procedure were explained to the patient. He elects to proceed. Discussion specifically included, but was not limited to, bleeding requiring emergency reoperation, infection, endoscopic perforation and the possibility that stent could migrate or could become clogged. OPERATIVE COURSE: The patient was conveyed to the operating room electively on 07/29/2019. General anesthesia was induced by the anesthesia staff. No radiologist was present for this procedure. Static fluoroscopic images were obtained and are kept in the PACS system. The surgeon interpretation of the radiographic images is dictated within the body of this operative report. A bite block was inserted. A gastroscope was inserted into the mouth. It was advanced easily into the hypopharynx. The esophagus was easily intubated. There was a lot of retained food material within the esophagus due to this nearly obstructing mass. The mass began at 26 cm from the incisors to 35 cm and penetrated through the EG junction. The stomach was easily intubated as was the duodenum. Upon withdrawal, retroflexed and angulus views were obtained. I then withdrew into the distal esophagus. Multiple cold endoscopic biopsies were obtained utilizing the biopsy forceps. Some of these were deep biopsies. The biopsy sites were made hemostatic with the argon plasma metal sander and finisher utilizing the esophageal setting in the forced mode. I then advanced a snare around an exophytic growth into the esophagus. This endoscopic snare was then used first with the coagulation setting and the cut setting. I then grasped this piece of esophageal tissue with an endoscopic retrieval net and withdrew it out through the mouth. I readvanced the endoscope. I advanced it into the stomach. Through the OPERATIVE REPORT [id number] VANE CARRILLO endoscope an 0.035 Jagwire was advanced into the stomach. This was visualized under fluoroscopy. I then measured the esophageal mass and placed metallic clips on the distal most portion of the stent as well as the proximal most portion of the stent. I then withdrew the gastroscope over the wire. Over the Jagwire, I loaded and advanced the [employer] stent. This was then deployed. The deployment device was removed as was the Jagwire. I then readvanced the gastroscope. I noted no bleeding. A retroflexed view was obtained in the stomach. The bare portion of the stent could be seen at the EG junction and part of it was protruding out into the stomach. I think the positioning is sensed just about perfect. I then withdrew into the proximal portion of the stent. Two resolution clips were used to clip the retrieval string to the esophageal side wall. The endoscope was then withdrawn under direct vision. The deployment of the stent was visualized under fluoroscopy as well as its positioning. The patient was then extubated and conveyed to post-anesthesia care unit where he was in stable condition. TRANSINT:[id number] Voice Confirmation ID: [id number] DOCUMENT ID: [id number] DAVID PETERSON MD at 1823 CC: [id number] DICTATION DATE: 07/29/19 1025 PORTABLE MACHINE SANDER: 07/29/19 1559 DIS IN 07/30/19 [facility] [address] [place] [address]
== END 2019-07-30 17:07 | disposition home or self-care (01) | DRG 374 ==
LOC: D.MS 15:58
PROVIDERS: Internal Medicine Nephrology; ADMIT Emergency Medicine; ATTEND Emergency Medicine
PROC: 0DB38ZX Excision of Lower Esophagus, Via Natural or Artificial Opening Endoscopic, Diagnostic (ICD-10-PCS; principal; 2019-07-14)
PROC: 0DB68ZX Excision of Stomach, Via Natural or Artificial Opening Endoscopic, Diagnostic (ICD-10-PCS; 2019-07-14)
PROC: 0D748ZZ Dilation of Esophagogastric Junction, Via Natural or Artificial Opening Endoscopic (ICD-10-PCS; 2019-07-14)
PROC: 0DB38ZX Excision of Lower Esophagus, Via Natural or Artificial Opening Endoscopic, Diagnostic (ICD-10-PCS; 2019-07-22)
PROC: 0DB68ZX Excision of Stomach, Via Natural or Artificial Opening Endoscopic, Diagnostic (ICD-10-PCS; 2019-07-22)
PROC: 0D748DZ Dilation of Esophagogastric Junction with Intraluminal Device, Via Natural or Artificial Opening Endoscopic (ICD-10-PCS; 2019-07-29)
PROC: 0DB38ZX Excision of Lower Esophagus, Via Natural or Artificial Opening Endoscopic, Diagnostic (ICD-10-PCS; 2019-07-29)
DX: C15.9 Malignant neoplasm of esophagus, unspecified (principal); E43 Unspecified severe protein-calorie malnutrition; J69.0 Pneumonitis due to inhalation of food and vomit; Z68.1 Body mass index [BMI] 19.9 or less, adult; F17.203 Nicotine dependence unspecified, with withdrawal; N39.0 Urinary tract infection, site not specified; B37.81 Candidal esophagitis; K22.2 Esophageal obstruction; I25.10 Atherosclerotic heart disease of native coronary artery without angina pectoris; K21.9 Gastro-esophageal reflux disease without esophagitis; E86.0 Dehydration; I25.2 Old myocardial infarction; E27.8 Other specified disorders of adrenal gland

== ENCOUNTER → 2019-08-07 11:25 | Outpatient (CLI) | payer MEDICARE ==
[2019-07-16 19:35] VITALS: BMI 18.0
[~2019-08-07 11:25] MED LIST changes: +LEVAQUIN750 MG PO
== END | disposition home or self-care (01) ==
LOC: D.RAD 11:00
PROVIDERS: ATTEND Surgery
DX: C15.9 Malignant neoplasm of esophagus, unspecified (principal)

== ENCOUNTER 2020-09-03 22:52 | Inpatient (IN) | payer MEDICARE ==
[~2020-09-03] VITALS: Ht 170.2 cm; Wt 47.6 kg
--- NOTE | ~2020-09-03 | EC ---
PATIENT:VANE CARRILLO DATE OF SERVICE: 09/04/20 SEX: M MEDICAL RECORD: [id number] DATE OF : [birth year] LOCATION:D.MS [address] AGE OF PATIENT: 70 ADMISSION DATE: 09/04/20 REFERRING PHYSICIAN: INTERPRETING PHYSICIAN: NANCI LI MD ECHOCARDIOGRAM REPORT ECHO CHARGES 4 ECHO COMPLETE Date: 09/15/20 CLINICAL DIAGNOSIS: PERICARDIAL EFFUSION ECHOCARDIOGRAPHIC MEASUREMENTS (adult normal given) AC root (d.<3.7cm) 3.7 cm LV Septum d (<1.2 cm> 1.3 cm Valve Excursion 1.1 cm LV Septum (systole) 1.5 cm Left Atria (s.<4.0cm> 4.2 cm LVPW d(<1.2cm) 1.2 cm RV (d.<2.3cm) 3.7 cm LVPW (sytole) 1.5 cm LV diastole(<5.6CM) 4.6 cm MV E-F(>70mm/sec) cm LV systole 3.1 cm LVOT Diameter 2.1 cm MV exc.(>10mm) cm Est.ejection fraction (50-75%) 50 % DOPPLER: LVIT cm/sec A 118 cm/sec E 71 cm/sec LA cm/sec RVSP 42 mmHg LVOT 106 cm/sec AOP1/2T m/s Asc. Ao 162 cm/sec RVOT 85 cm/sec RA 3.7 cm/sec PA 78 cm/sec AV Gradient Peak 10 mmHg AV Mean 5 mmHg AV Area 2.7 cm MV Gradient Peak 5 mmHg MV Mean 2 mmHg MV Area cm COMMENTS: Nuclear Physics Professor: Jarrell HARRELL Analytics Senior Manager: Deandre Li TAPE# Pericardial Effusion Y DATE OF SERVICE: 09/05/2020 CLINICAL DIAGNOSIS: Pericardial effusion. FINDINGS: Normal left ventricular chamber size and contractile function, ejection fraction 55%. Left atrial chamber appears normal. Right ventricular chamber size and function appear normal. Aortic valve appears normal with mild aortic sclerosis. Trace aortic regurgitation. Mitral valve appears normal. Mild mitral regurgitation. Tricuspid valve appears normal. Mild tricuspid regurgitation. Pulmonic valve is not well visualized. No pulmonary ECHOCARDIOGRAM REPORT [id number] VANE CARRILLO insufficiency. Small to moderate sized pericardial effusion noted. IMPRESSION: 1. Normal left ventricular chamber size and contractile function, ejection fraction of 55%. 2. Small to moderate pericardial effusion. TRANSINT:[id number] Voice Confirmation ID: [id number] DOCUMENT ID: [id number] NANCI LI MD CC: [id number] DICTATION DATE: 09/05/20 160 CRIMINALIST: 09/05/201941 DIS IN 09/05/20 [facility] [address] [id number]
[~2020-09-03 22:52] MED LIST changes: +ATIVAN0.5 MG PO; +LOMOTIL 2.5-0.1 EAC1 PO; +OXYCONTIN15 MG PO; +THORAZINE50 MG PO
[2020-09-03] MEDS ORDERED: BACLOFEN10 MG PO (22:59)
[2020-09-04] VITALS (15 sets, daily range): BP systolic 99–141; BP diastolic 49–86; Ht 170.2 cm; Wt 47.6 kg
--- NOTE | 2020-09-04 00:30 | NUR ---
PT REQUESTING MORE PAIN MEDICATION. EDP NOTIFIED. SEE EMAR.
[2020-09-04 03:18] LABS: BASOPHILS 0.1 % (0-2); EOSINOPHILS 0.4 % (0-7); HEMATOCRIT 32.9 % (42.0-54.0); IMMATURE GRANULOCYTES 0.3 % (0-5); LYMPHOCYTE ABS# 0.93 10x3/uL (1.32-3.57); LYMPHOCYTES 6.8 % (15-50); MCH 29.6 pg (26.0-34.0); MCHC 33.4 g/dL (31.0-37.0); MCV 88.7 fL (80.0-100.0); MEAN PLATELET VOLUME 9.2 fL (7.4-10.4); MONOCYTES 3.4 % (2-11); NEUTROPHIL ABS# 12.24 10x3/uL (1.78-5.38); PLATELET COUNT 296 10x3/uL (130-400); RBC 3.71 10x6/uL (4.20-6.10); RDW 17.8 % (11.5-14.5); WBC 13.8 10x3/uL (4.8-10.8)
[2020-09-04 03:25] LABS: INR 0.93 (0.85-1.17); PROTIME 11.5 SECONDS (11.6-15.0)
[2020-09-04 03:26] LABS: CALC OSMOLALITY 279 mosm/kg (275-300); CALCIUM 8.8 mg/dL (8.5-10.1); CARBON DIOXIDE 26.6 mmol/L (21.0-32.0); CHLORIDE - SERUM 103 mmol/L (98-107); GLUCOSE 122 mg/dL (74-106); POTASSIUM - SERUM 4.5 mmol/L (3.5-5.1); SODIUM 138 mmol/L (136-145); UREA NITROGEN 22 mg/dL (7-18); eGFR NON AFRICAN AMERICAN 79 mL/min (90-120)
[2020-09-04 03:32] LABS: ALBUMIN 2.8 g/dL (3.4-5.0); ALKALINE PHOSPHATASE 79 U/L (30-120); ALT (SGPT) 19 U/L (10-68); BILIRUBIN - TOTAL 0.27 mg/dL (0.2-1.3); PROTEIN - SERUM 6.7 g/dL (6.4-8.2)
[2020-09-04] MEDS ORDERED: ONDANSETRON ODT8 MG PO (03:39)
--- NOTE | 2020-09-04 07:30 | NUR ---
PT ALERT AND ORIENTED. STATES PAIN LEVEL IS A 9 OUT OF 10 ON THE PAIN SCALE. SPOOL CLEANER READY TO DELIVER PER PT USE. SEE ASSESSMENT. POSSE ALARM ON. WCTM
--- NOTE | 2020-09-04 08:50 | NUR ---
GI HERE FOR EGD. GETTING CONSENTS ACKNOWLEDGED AND SIGNED. PT ABLE TO INTIAL. STATES IF HE SIGNS THEM ALL HIS HAND WILL GO NUMB. CL IN REACH. TELEMETRY AWARE PT GONE FOR PROCEDURE.
--- NOTE | 2020-09-04 09:35 | NUR ---
ESOPHAGOSCOPY (DX), UNABLE TO REMOVE INBEDDED STENT. NO DILITATION.
--- NOTE | 2020-09-04 14:19 | NUR ---
IN ROOM. VS STABLE. DENIES ANY NEED. POSSE ALARM ON. WCTM
[2020-09-04 14:23] LABS: BILIRUBIN NEGATIVE (NEGATIVE); KETONE NEGATIVE (NEGATIVE); NITRITE POSITIVE (NEGATIVE); UROBILINOGEN NORMAL mg/dL (< 2)
[2020-09-04 14:24] LABS: BACTERIA MANY HPF (NONE SEEN); SQUAMOUS EPITHELIAL NONE SEEN HPF (0-4); WHITE CELLS - URINE 0-5 HPF (0-1)
[2020-09-04 14:25] LABS: AMORPHOUS SEDIMENT <1+ LPF (NONE SEEN)
[2020-09-05] VITALS: BP 90/57
[2020-09-05 04:00] VITALS: BP 113/69
[2020-09-05 07:07] LABS: CALCIUM 7.9 mg/dL (8.5-10.1); CARBON DIOXIDE 21.1 mmol/L (21.0-32.0); CHLORIDE - SERUM 105 mmol/L (98-107); GLUCOSE 80 mg/dL (74-106); POTASSIUM - SERUM 4.3 mmol/L (3.5-5.1); SODIUM 137 mmol/L (136-145)
[2020-09-05 07:08] LABS: CALC OSMOLALITY 272 mosm/kg (275-300); CREATININE - SERUM 0.6 mg/dL (0.6-1.3); UREA NITROGEN 12 mg/dL (7-18); eGFR NON AFRICAN AMERICAN > 90 mL/min (90-120)
[2020-09-05 07:36] LABS: BASOPHILS 0.2 % (0-2); EOSINOPHILS 0.8 % (0-7); HEMATOCRIT 29.8 % (42.0-54.0); HEMOGLOBIN 9.8 g/dL (13.5-17.5); IMMATURE GRANULOCYTES 0.2 % (0-5); LYMPHOCYTE ABS# 0.69 10x3/uL (1.32-3.57); LYMPHOCYTES 8.1 % (15-50); MCH 29.4 pg (26.0-34.0); MCHC 32.9 g/dL (31.0-37.0); MCV 89.5 fL (80.0-100.0); MEAN PLATELET VOLUME 9.7 fL (7.4-10.4); MONOCYTES 7.1 % (2-11); NEUTROPHIL ABS# 7.11 10x3/uL (1.78-5.38); NEUTROPHILS 83.6 % (40-80); PLATELET COUNT 281 10x3/uL (130-400); RBC 3.33 10x6/uL (4.20-6.10); RDW 18.2 % (11.5-14.5)
[2020-09-05 07:37] LABS: WBC 8.5 10x3/uL (4.8-10.8)
--- NOTE | 2020-09-05 07:45 | NUR ---
PT CO OF SEVERE PAIN. STATES IT IS A 10 OUT OF 10 ON THE PAIN SCALE. REMINDED HIM ABOUT THE MILK PASTEURIZER BUTTON. HE USED IT AND STATES SOME RELIEF. CL IN REACH. NO FURTHER NEEDS AT THIS TIME. REQUESTING SOME ZOFRAN FOR PROPHYLACTIC TREATMENT. THIS WILL BE PROVIDED. CL IN REACH. WCTM
[2020-09-05 10:07] VITALS: BP 91/56
[2020-09-05 14:15] VITALS: BP 101/54
[2020-09-05] MEDS ORDERED: NICODERM CQ1 EAC3 TOPICAL (15:23)
--- NOTE | 2020-09-05 15:55 | NUR ---
IV THERAPY REMOVED FROM RIGHT FOREARM WITH TIP INTACT. PT AND VERBALIZED UNDERSTANDING. ASSISTED TO EMPTY UROSTOMY ONE LAST TIME AND ASSISTED OUT.
--- NOTE | 2020-09-05 18:59 | MORECARE ---
CASE MANAGEMENT DISCHARGE SUMMARY PATIENT: VANE CARRILLO UNIT: [id number] ADM DATE: 09/04/20 AGE: 70 : 54 SEX: M ROOM/BED: D.2227 AUTHOR: JOSE ANTONIODOC PHYSICIAN: REFERRING PHYSICIAN: MARIAN CAMEJO MD DATE OF SERVICE: 09/05/20 Case Management Discharge Planning Summary DCP REVIEW SUMMARY ANTICIPATED D/C DATE: 09/05/2020 EXPECTED LOS : 1 CASE STATUS: DCP Initiated INITIAL REVIEW: 09/04/2020 INITIAL REVIEWER: Alphonso Borrero FINAL DISCHARGE DISPOSITION: : FINAL REVIEWER: FINAL REVIEW DATE: DCP Focus Questions & Answers DCP Evaluation QUESTION: ANSWER Family / Caregiver's ability to cope with chronic illness: : a. Adequate (ability to meet patient's medical needs, ensures patient attends medical appts.) Patient gives permission to discuss discharge plans with: (name, relationship and number) : spouse, Vanessa Carrillo, Patient's ability to cope with chronic illness : d. No chronic illness Patient's current cognitive status: : *Oriented to person, place, situation, time and present Patient and/or caregiver agree upon recommended discharge plan? : Yes Physical Status: : Independent with ADL's Family / Caregiver's ability to cope with chronic illness: : a. Adequate (ability to meet patient's medical needs, ensures patient attends medical appts.) Functional screen assessment: : Basic needs can adequately be met by self Does the patient have the ability to pay for or attain post discharge needs / services? : Yes Living Arrangements: : Home with Spouse/Significant Other Is there a likelihood that the patient will require additional services to return to the preadmission environment? : No Equipment needed for post hospitalization: : None Baseline cognitive status: : *Oriented to person, place, situation, time and present Patient with capacity for self-care or can be cared for in same environment as prior to hospitalization? : Yes Physical environment modification needed / anticipated for discharge: : No Medication Management: : Patient states can afford medications Medication Management: : Patient states can read and understand medication labels Pharmacy name(s): : [facility] Does Patient have transportation to get home and to follow-up medical appointments when discharged from the hospital? : Yes Would patient like to participate in any Care Coordination programs (if applicable): : Not applicable Does the patient have electricity at home? : Yes Does the patient have running water in their house? : Yes Equipment in use: : Cane - Single Leg Equipment in use: : Shower Chair Equipment in use: : Walker - Rolling Mental health screen: : No mental health history DCP Re-evaluation QUESTION: ANSWER Would patient like to participate in any Care Coordination programs (if applicable): : Not applicable PATIENT: VANE CARRILLO ENCOUNTER: [id number] MEDICAL RECORD#: [id number] ADMISSION DATE: 09/04/2020 DISCHARGE DATE: 09/05/2020 ATTENDING MD: MARIAN ANDERSON : AGE: 70 MARITAL STATUS: S DC PLAN ID: [id number] FACILITY: [facility] PRINTED ON: 09/05/20 18:59 CT All edits/amendments must be made on the electronic document DICTATION DATE: 09/05/201858 PROVIDER RELATIONS REPRESENTATIVE: DIOMEDES 09/05/201858 RPT#: [id number] DC DATE:09/05/20 STATUS: DIS IN [facility] [address] [place] [address] END OF REPORT
--- NOTE | 2020-09-05 19:10 | MORECARE ---
CASE MANAGEMENT DISCHARGE SUMMARY PATIENT: VANE CARRILLO UNIT: [id number] ADM DATE: 09/04/20 AGE: 70 : 54 SEX: M ROOM/BED: D.2227 AUTHOR: LUIGI BRADY PHYSICIAN: REFERRING PHYSICIAN: MARIAN CAMEJO MD DATE OF SERVICE: 09/05/20 Case Management Discharge Planning Summary COMMENTS ENTERED DATE: 09/05/20 19:00 CT COMMENT TYPE: Discharge Planning REVIEWER: Alphonso Borrero CM met with patient to complete DC plan and to evaluate needs. Patient lives at home independently with his spouse, Vanessa Carrillo, . Patient stated that their home is safe and has electricity and running water. Patient stated that he has no problems paying for medications and they fill their medications at [facility]. Patient stated that his primary care physician is Dr. Talamantes. At discharge, the patient plans to return home and feels this is a safe discharge. CM discussed availability of home health, rehab services, and medical equipment. Patient declined HHS, SNF, IPR, and DME. Patient stated that he has cane, walker, and shower bench. Patient voiced no other needs at this time and is satisfied with DC plan. Transportation provider at discharge will be with his spouse Vanessa. DC IMM delivered, explained, signed by the patient, and placed in chart. Signed form also left with the patient. CM will continue to follow and will assist as needed with dc plans/needs. DCP REVIEW SUMMARY ANTICIPATED D/C DATE: 09/05/2020 EXPECTED LOS : 1 CASE STATUS: DCP Initiated INITIAL REVIEW: 09/04/2020 INITIAL REVIEWER: Alphonso Borrero FINAL DISCHARGE DISPOSITION: : FINAL REVIEWER: FINAL REVIEW DATE: DCP Focus Questions & Answers DCP Evaluation QUESTION: ANSWER Family / Caregiver's ability to cope with chronic illness: : a. Adequate (ability to meet patient's medical needs, ensures patient attends medical appts.) Patient gives permission to discuss discharge plans with: (name, relationship and number) : spouse, Vanessa Carrillo, Patient's ability to cope with chronic illness : d. No chronic illness Patient's current cognitive status: : *Oriented to person, place, situation, time and present Patient and/or caregiver agree upon recommended discharge plan? : Yes Physical Status: : Independent with ADL's Family / Caregiver's ability to cope with chronic illness: : a. Adequate (ability to meet patient's medical needs, ensures patient attends medical appts.) Functional screen assessment: : Basic needs can adequately be met by self Does the patient have the ability to pay for or attain post discharge needs / services? : Yes Living Arrangements: : Home with Spouse/Significant Other Is there a likelihood that the patient will require additional services to return to the preadmission environment? : No Equipment needed for post hospitalization: : None Baseline cognitive status: : *Oriented to person, place, situation, time and present Patient with capacity for self-care or can be cared for in same environment as prior to hospitalization? : Yes Physical environment modification needed / anticipated for discharge: : No Medication Management: : Patient states can afford medications Medication Management: : Patient states can read and understand medication labels Pharmacy name(s): : [facility] Does Patient have transportation to get home and to follow-up medical appointments when discharged from the hospital? : Yes Would patient like to participate in any Care Coordination programs (if applicable): : Not applicable Does the patient have electricity at home? : Yes Does the patient have running water in their house? : Yes Equipment in use: : Cane - Single Leg Equipment in use: : Shower Chair Equipment in use: : Walker - Rolling Mental health screen: : No mental health history DCP Re-evaluation QUESTION: ANSWER Would patient like to participate in any Care Coordination programs (if applicable): : Not applicable PATIENT: VANE CARRILLO ENCOUNTER: [id number] MEDICAL RECORD#: [id number] ADMISSION DATE: 09/04/2020 DISCHARGE DATE: 09/05/2020 ATTENDING MD: MARIAN ANDERSON : AGE: 70 MARITAL STATUS: S DC PLAN ID: [id number] FACILITY: [facility] PRINTED ON: 09/05/20 19:10 CT All edits/amendments must be made on the electronic document DICTATION DATE: 09/05/201909 OVERLOCK OPERATOR: DIOMEDES 09/05/201909 RPT#: [id number] DC DATE:09/05/20 STATUS: DIS IN [facility] [address] [place] [address] END OF REPORT
== END 2020-09-05 16:13 | disposition home or self-care (01) | DRG 908 ==
LOC: D.ER 22:52 → D.MS 09-04 02:44
PROVIDERS: Family Medicine; Surgery; ADMIT Emergency Medicine; ATTEND Emergency Medicine
PROC: 0DW Gastrointestinal System, Revision (ICD-10-PCS; principal; 2020-09-04 09:30)
DX: T85.9XXA Unspecified complication of internal prosthetic device, implant and graft, initial encounter (principal); S22.41XA Multiple fractures of ribs, right side, initial encounter for closed fracture; S22.070A Wedge compression fracture of T9-T10 vertebra, initial encounter for closed fracture; I31.3 Pericardial effusion (noninflammatory); C15.9 Malignant neoplasm of esophagus, unspecified; W19.XXXA Unspecified fall, initial encounter; I71.4 Abdominal aortic aneurysm, without rupture; E78.5 Hyperlipidemia, unspecified; K22.70 Barrett's esophagus without dysplasia; D50.9 Iron deficiency anemia, unspecified; F41.9 Anxiety disorder, unspecified; G89.29 Other chronic pain; C67.9 Malignant neoplasm of bladder, unspecified

== ENCOUNTER 2020-09-25 18:13 | Inpatient (IN) | payer MEDICARE ==
[~2020-09-25] VITALS: Ht 170.2 cm; Wt 49.4 kg
--- NOTE | ~2020-09-25 | OP ---
PATIENT NAME: VANE CARRILLO MEDICAL RECORD: [id number] :54 LOCATION:D.MS [id number] ADMISSION DATE:09/25/20 SURGEON: SAILAJA PETERSON MD DATE OF OPERATION: 09/28/2020 PREOPERATIVE DIAGNOSES: 1. Dislodged esophageal stent. 2. History of esophageal cancer. POSTOPERATIVE DIAGNOSES: 1. Completely dislodged esophageal stent, which was completely within the stomach. 2. Abnormal tissue from 32 cm from the incisors to 40 cm. This is suspicious for recurrent malignancy. 3. Acute malnutrition. 4. 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 PROCEDURE: 1. Esophagogastroduodenoscopy with antral and esophageal biopsies in the area of abnormal tissue. 2. Repositioning of stent up to 30 cm from the incisors covering all of the abnormal tissue and then fixation of the stent to the esophageal wall with 3 Resolution clips. 3. Percutaneous endoscopic gastrostomy tube placement, 20-Indonesian. SURGEON: Sailaja Peterson MD TUBE BUILDER: None. BLOOD LOSS: Minimal. ANESTHESIA: Local with IV sedation. COMPLICATIONS: None. The risks, possible complications, and alternatives to the procedure were explained to the patient. He elects to proceed. ENDOSCOPIC COURSE: The patient was conveyed to the endoscopy suite electively on 09/28/2020. IV sedation was induced by the anesthesia staff. A bite block was inserted. A gastroscope was inserted into the mouth. It was advanced easily into the hypopharynx. The papillomatous lesion was identified above the level of the cords, I intubated the esophagus easily. I intubated the stomach easily as well. I measured where the abnormal tissue was. This appeared to be either Patrick's or recurrent malignancy. The patient underwent endoscopic biopsies of this area. I then advanced into the stomach. I advanced into the duodenum to the third portion. I then withdrew the endoscope. Cold antral biopsies were obtained to rule out H. pylori. I grasped the proximal portion of the stent. I was then able to pull the stent up with the endoscope to 30 cm. It was then affixed to the esophageal wall with 3 Resolution clips. I advanced into the stomach. I was able to transilluminate the stomach. I cleansed the anterior abdominal wall skin with Betadine. Local anesthetic was OPERATIVE REPORT [id number] VANE CARRILLO used to infiltrate the skin and subcutaneous tissues. A transverse incision was accomplished. I then accessed the anterior portion of the stomach on the first try with an Angiocath. Wire was advanced. This was grasped with an endoscopic snare. The gastroscope and the snare and the wire were withdrawn up through the mouth. The wire was attached to pull-type gastrostomy tube, which was pulled into place. I re-endoscoped the patient's esophagus and stomach. There had been no dislodgement of the stent. The gastrostomy tube was well placed. The endoscope was then withdrawn under direct vision. Hub and Flange devices were attached to the gastrostomy tube. I have left a message with Dr. Wong regarding my endoscopic findings. I am going to recommend ENT consultation due to the papillomatous lesion. TRANSINT:[id number] Voice Confirmation ID: [id number] DOCUMENT ID: [id number] SAILAJA PETERSON MD CC: YOUNG LESTER, HAMIDA BOONE, SAILAJA WONG and DWAIN, [id number] DICTATION DATE: 09/28/20 1027 COUPON MANIFEST CLERK: 09/28/20 1519 ADM IN [facility] [address] [place] [address]
[~2020-09-25 18:13] MED LIST changes: +BACLOFEN10 MG PO; +NICODERM CQ1 EAC3 TOPICAL; +ONDANSETRON ODT8 MG PO
--- NOTE | 2020-09-25 18:33 | NUR ---
PT RECIEVED VIA EMS. AT THE BEDSIDE. PORT ACCESSED VIA STERILE TECHNIQUE. 20G-1 INCH. VSS. C/O ABDOMINAL PAIN AND NAUSEA. SANITATION SUPERVISOR AT THE BEDSIDE.
[2020-09-25 18:35] LABS: BASOPHILS 0.1 % (0-2); EOSINOPHILS 0.3 % (0-7); HEMATOCRIT 29.5 % (42.0-54.0); IMMATURE GRANULOCYTES 0.2 % (0-5); LYMPHOCYTE ABS# 0.83 10x3/uL (1.32-3.57); LYMPHOCYTES 7.9 % (15-50); MCH 29.1 pg (26.0-34.0); MCHC 33.9 g/dL (31.0-37.0); MCV 85.8 fL (80.0-100.0); MEAN PLATELET VOLUME 9.7 fL (7.4-10.4); MONOCYTES 5.6 % (2-11); NEUTROPHIL ABS# 9.02 10x3/uL (1.78-5.38); NEUTROPHILS 85.9 % (40-80); RBC 3.44 10x6/uL (4.20-6.10); RDW 17.7 % (11.5-14.5); WBC 10.5 10x3/uL (4.8-10.8)
[2020-09-25 18:36] LABS: PLATELET COUNT 384 10x3/uL (130-400)
[2020-09-25] MEDS ORDERED: PEPCID40 MG PO (18:41)
[2020-09-25] MEDS ORDERED: TRIAMTERENE-HC1 EAC6 PO (18:41)
[2020-09-25] MEDS ORDERED: BACLOFEN10 MG (18:42)
[2020-09-25 18:43] LABS: CALC OSMOLALITY 273 mosm/kg (275-300); CARBON DIOXIDE 26.6 mmol/L (21.0-32.0); CHLORIDE - SERUM 99 mmol/L (98-107); CREATININE - SERUM 1.2 mg/dL (0.6-1.3); GLUCOSE 111 mg/dL (74-106); POTASSIUM - SERUM 3.5 mmol/L (3.5-5.1); SODIUM 135 mmol/L (136-145); UREA NITROGEN 20 mg/dL (7-18); eGFR NON AFRICAN AMERICAN 64 mL/min (90-120)
[2020-09-25 18:51] LABS: ALBUMIN 2.8 g/dL (3.4-5.0); ALKALINE PHOSPHATASE 84 U/L (30-120); ALT (SGPT) 19 U/L (10-68); AMYLASE - SERUM 59 U/L (25-115); BILIRUBIN - TOTAL 0.27 mg/dL (0.2-1.3); LIPASE 64 U/L (73-393); PROTEIN - SERUM 6.3 g/dL (6.4-8.2)
[2020-09-25 18:52] LABS: TROPONIN-I < 0.017 ng/mL (0.000-0.060)
[2020-09-25 19:29] LABS: BILIRUBIN NEGATIVE (NEGATIVE); KETONE NEGATIVE (NEGATIVE); NITRITE NEGATIVE (NEGATIVE); UROBILINOGEN NORMAL mg/dL (< 2)
[2020-09-25 20:30] VITALS: BP 127/71
[2020-09-25 21:00] VITALS: BP 127/69
[2020-09-25 22:08] LABS: APTT 31.3 SECONDS (22.8-39.4); INR 1.11 (0.85-1.17); PROTIME 13.2 SECONDS (11.6-15.0)
[2020-09-25 22:13] LABS: % SATURATION 14 % (15-55); IRON 29 ug/dl (35-150); TOTAL IRON BIND CAPACITY 196 ug/dl (260-445); UNSAT IRON BIND CAPACITY 167 ug/dl (150-375)
--- NOTE | 2020-09-26 03:41 | NUR ---
ASSUMED CARE OF PT WHEN BROUGHT FROM ED. COLLINS NEEDLE CAME OUT OF PORT DURING TRANSFER AND AREA CLEANSED THEN COVERED UNTIL NEW ONE PLACED. PT CONTINUES TO C/O ABD/BACK PAIN BUT FALLS ASLEEP DURING ASSESSMENT. EASILY WAKES TO VERBAL STIMULI. IN BED RESTING AT THIS TIME.
--- NOTE | 2020-09-26 07:30 | NUR ---
AWAKE AND ALERT. ORIENTED X3. C/O PAIN TO ABDOMEN AND GENERALIZED LEVEL 10. GIVEN 4MG MORPHINE SLOW IVP FOR SAME. WILL MONITOR. LUNGS ARE CLEAR BUT DIMINISHED. USED IS INSTRUCTED. SKIN IS INTACT WITHOUT REDNESS. LEFT PORT IS PATENT WITHOUT REDNESS AT INSERTION SITE. ILEOSTOMY PATENT WITH CLEAR YELLOW URINE. DENIES FURTHER NEEDS.
[2020-09-26 07:53] LABS: BASOPHILS 0.1 % (0-2); EOSINOPHILS 0.6 % (0-7); HEMATOCRIT 28.2 % (42.0-54.0); HEMOGLOBIN 9.4 g/dL (13.5-17.5); IMMATURE GRANULOCYTES 0.3 % (0-5); MCH 28.5 pg (26.0-34.0); MCHC 33.3 g/dL (31.0-37.0); MCV 85.5 fL (80.0-100.0); MEAN PLATELET VOLUME 9.7 fL (7.4-10.4); MONOCYTES 9.5 % (2-11); NEUTROPHILS 83.5 % (40-80); PLATELET COUNT 365 10x3/uL (130-400); RDW 17.9 % (11.5-14.5)
[2020-09-26 07:58] LABS: WBC 6.7 10x3/uL (4.8-10.8)
[2020-09-26 08:11] LABS: ALBUMIN 2.5 g/dL (3.4-5.0); ALKALINE PHOSPHATASE 78 U/L (30-120); ALT (SGPT) 17 U/L (10-68); BILIRUBIN - TOTAL 0.27 mg/dL (0.2-1.3); CALC OSMOLALITY 273 mosm/kg (275-300); CALCIUM 8.3 mg/dL (8.5-10.1); CARBON DIOXIDE 24.3 mmol/L (21.0-32.0); CHLORIDE - SERUM 101 mmol/L (98-107); CREATININE - SERUM 0.9 mg/dL (0.6-1.3); GLUCOSE 73 mg/dL (74-106); MAGNESIUM - SERUM 1.8 mg/dL (1.8-2.4); POTASSIUM - SERUM 3.7 mmol/L (3.5-5.1); PROTEIN - SERUM 5.4 g/dL (6.4-8.2); SODIUM 137 mmol/L (136-145); UREA NITROGEN 15 mg/dL (7-18); eGFR NON AFRICAN AMERICAN 89 mL/min (90-120)
[2020-09-26 08:14] VITALS: BP 100/54
--- NOTE | 2020-09-26 09:00 | NUR ---
PATIENT NPO AT THIS TIME. DENIES NEEDS.
--- NOTE | 2020-09-26 11:00 | NUR ---
DR. GOLDMAN HERE. DISCUSSED OPTIONS FOR TREATMENT.
[2020-09-26 13:42] VITALS: BP 93/51
[2020-09-26 16:35] VITALS: BP 94/53
--- NOTE | 2020-09-26 17:37 | NUR ---
REQUESTED AND GIVNE 4MG MORPHINE SLOW IVP. WILL MONITOR. NO CHANGES NOTED.
--- NOTE | 2020-09-27 06:33 | NUR ---
PT CONTINUES TO C/O PAIN 02/27 EVEN WITH MS. PT DID STATE THAT HE BELIEVES THE MORPHINE SHOULD MAKE HIM SLEEP BECAUSE THATS THE ONLY WAY HE GETS RELIEF IS WHEN HE IS SLEEPING. PT EDUCATION DONE REGARDING PAIN MEDICATION PT WAS NOT REQUESTING SAME IF HE FELT HE WOULD BE DISTURBED FROM SLEEP. PT DID VERBALIZE UNDERSTANDING HE NEEDS THE MEDICATION BEFORE THE PAIN GETS UNBARABLE AND HARD TO CONTROL OTHERWISE. PT IN BED RESTING AT THIS TIME.
[2020-09-27 06:52] LABS: BASOPHILS 0.1 % (0-2); EOSINOPHILS 0.4 % (0-7); HEMATOCRIT 28.7 % (42.0-54.0); HEMOGLOBIN 9.2 g/dL (13.5-17.5); IMMATURE GRANULOCYTES 0.3 % (0-5); LYMPHOCYTE ABS# 0.37 10x3/uL (1.32-3.57); MCH 28.2 pg (26.0-34.0); MCHC 32.1 g/dL (31.0-37.0); MEAN PLATELET VOLUME 9.9 fL (7.4-10.4); MONOCYTES 7.1 % (2-11); NEUTROPHIL ABS# 6.39 10x3/uL (1.78-5.38); NEUTROPHILS 87.1 % (40-80); PLATELET COUNT 378 10x3/uL (130-400); RBC 3.26 10x6/uL (4.20-6.10); RDW 18.4 % (11.5-14.5); WBC 7.3 10x3/uL (4.8-10.8)
[2020-09-27 07:03] LABS: ALBUMIN 2.4 g/dL (3.4-5.0); ALKALINE PHOSPHATASE 77 U/L (30-120); ALT (SGPT) 19 U/L (10-68); BILIRUBIN - TOTAL 0.29 mg/dL (0.2-1.3); CALCIUM 8.3 mg/dL (8.5-10.1); CARBON DIOXIDE 20.6 mmol/L (21.0-32.0); CHLORIDE - SERUM 106 mmol/L (98-107); CREATININE - SERUM 0.9 mg/dL (0.6-1.3); MAGNESIUM - SERUM 1.8 mg/dL (1.8-2.4); POTASSIUM - SERUM 3.8 mmol/L (3.5-5.1); PROTEIN - SERUM 5.8 g/dL (6.4-8.2); SODIUM 139 mmol/L (136-145); UREA NITROGEN 16 mg/dL (7-18); eGFR NON AFRICAN AMERICAN 89 mL/min (90-120)
[2020-09-27 07:08] LABS: CALC OSMOLALITY 276 mosm/kg (275-300)
[2020-09-27 07:09] LABS: GLUCOSE 58 mg/dL (74-106)
[2020-09-27 10:02] VITALS: BP 111/66
--- NOTE | 2020-09-27 10:21 | NUR ---
PATIENT C/O PAIN MEDICATION NOT BEING STRONG ENOUGH AND WOULD LIKE IT CHANGED TO SOMETHING ELSE. TOLD PATIENT WE WILL ALK TO DOCTOR WHEN THEY MAKE ROUNDS, PATIENT IS REQUESTING DILAUDID. NO OTHER NEEDS AT THIS TIME. CONTINUE WITH PLAN OF CARE
[2020-09-27 10:48] VITALS: Ht 170.2 cm; Wt 49.4 kg
[2020-09-27 14:07] VITALS: BP 109/61
--- NOTE | 2020-09-27 15:47 | NUR ---
OT NOTE: PT COMPLETED BED MOB WITH CGA-MIN A. PT COMPLETED EOB SITTING WITH SBA-CGA. PT COMPLETED RAJESH SOCKS WITH MAX A. PT COMPLETED FACE HYGIENE WITH SETUP. [phone] AJAY SANDERS COTA
--- NOTE | 2020-09-27 18:58 | NUR ---
I have reviewed this patient and I concur with the Shift Assessment completed by the Licensed Practical Nurse today this shift.
[2020-09-27 18:59] VITALS: BP 106/55
--- NOTE | 2020-09-27 19:22 | NUR ---
ASSUMED CARE OF PT AFTER REPORT/ROUNDS. PT REQUESTING MORPHINE ON ROUNDS AND TOLD WHEN NEXT DOSE DUE. REMAINS A&OX4 AND VERBALIZES WANTS/NEEDS CLEARLY AND WITHOUT HESITATION. PT IS RESTING IN BED AT THIS TIME.
[2020-09-27 20:00] VITALS: BP 113/53
--- NOTE | 2020-09-28 03:54 | NUR ---
PT HAS REMAINED MOSTLY AWAKE WITH NAPPING HERE AND THERE T/O THE NIGHT. PT WANTS PRN MS EVERY 2 HOURS AND CONTINUES TO C/O PAIN. SHUE BATH ATTEMPTED AND PT REFUSED STATING, "I'M NOT DOING A THING UNTIL I SEE OR HIS SALES UTILITY REPRESENTATIVE. I'VE DONE THIS A TIME OR TWO WITH THEM AND, UNTIL THEY COME, I'M NOT DOING IT". WILL ENSURE DAY STAFF KNOW.
[2020-09-28 04:00] VITALS: BP 95/50
--- NOTE | 2020-09-28 06:36 | NUR ---
THIS NURSE WENT TO ASSIST PT WITH IS THIS AM AND PT REFUSED THEN WHEN THIS NURSE ASKED WHAT HAPPENED TO HIS I.S. PT STATED, "WELL I THREW THAT THING AWAY. IHAVE 6 OF THEM FUCKING THINGS AT HOME. IT'S THE LEAST OF MY CONCERNS." PT EDUCATION ON IMPORTANCE OF I.S. USE AND PREVENTATIVE MEASURES. PT VERBALIZED UNDERSTANDING AND STATED HE DIDN'T CARE. HE DOESN'T FEEL HE NEEDS IT AND HE REFUSES TO USE IT ANYMORE. PT ALSO VERBALIZED TO THIS NURSE HE IS VERY ANXIOUS ABOUT THE PROCEDURE TODAY. THERAPEUTIC COMMUNICATION DONE RE;SAME. PT HAS REMAINED PLEASANT WITH STAFF THIS NIGHT.
[2020-09-28 06:37] LABS: BASOPHILS 0.1 % (0-2); EOSINOPHILS 0.3 % (0-7); HEMATOCRIT 24.5 % (42.0-54.0); HEMOGLOBIN 7.9 g/dL (13.5-17.5); IMMATURE GRANULOCYTES 0.1 % (0-5); LYMPHOCYTE ABS# 0.39 10x3/uL (1.32-3.57); LYMPHOCYTES 5.6 % (15-50); MCH 28.7 pg (26.0-34.0); MCHC 32.2 g/dL (31.0-37.0); MCV 89.1 fL (80.0-100.0); MEAN PLATELET VOLUME 10.2 fL (7.4-10.4); MONOCYTES 9.2 % (2-11); NEUTROPHIL ABS# 5.86 10x3/uL (1.78-5.38); NEUTROPHILS 84.7 % (40-80); PLATELET COUNT 361 10x3/uL (130-400); RBC 2.75 10x6/uL (4.20-6.10); WBC 6.9 10x3/uL (4.8-10.8)
[2020-09-28 06:56] LABS: ALBUMIN 2.3 g/dL (3.4-5.0); ALKALINE PHOSPHATASE 71 U/L (30-120); ALT (SGPT) 17 U/L (10-68); BILIRUBIN - TOTAL 0.23 mg/dL (0.2-1.3); CALCIUM 8.3 mg/dL (8.5-10.1); CARBON DIOXIDE 16.7 mmol/L (21.0-32.0); CHLORIDE - SERUM 110 mmol/L (98-107); CREATININE - SERUM 0.9 mg/dL (0.6-1.3); MAGNESIUM - SERUM 1.8 mg/dL (1.8-2.4); PROTEIN - SERUM 5.1 g/dL (6.4-8.2); SODIUM 143 mmol/L (136-145); UREA NITROGEN 16 mg/dL (7-18); eGFR NON AFRICAN AMERICAN 89 mL/min (90-120)
[2020-09-28 07:09] LABS: CALC OSMOLALITY 282 mosm/kg (275-300)
[2020-09-28 07:10] LABS: GLUCOSE 53 mg/dL (74-106)
[2020-09-28 08:50] VITALS: BP 90/57
--- NOTE | 2020-09-28 10:25 | NUR ---
RECEIVED CALL FROM [facility] IN [facility], PATIENT STENTS READJUSTED, PEG TUBE PLACED AND PATIENT TOLERATED PROCEDURE WELL. NO OTHER NEEDS AT THIS TIME. CONTINUE WITH PLAN OF CARE
--- NOTE | 2020-09-28 14:03 | NUR ---
PATIENT WAS GONE FOR SURGRY
[2020-09-28 14:48] VITALS: BP 106/59
--- NOTE | 2020-09-28 17:28 | NUR ---
PATIENT BLOOD COMPLETED, PATIENT TOLERATED WELL, HAS PAIN PATCH ON AND STATES HE IS STILL IN PAIN, DO NOT FEEL COMFORTABLE ADMNISTERING PRN IV PAIN MEDICATION WILL MONITOR AND SEE IF PATIENT STILL COMPLAINS OF PAIN MAY ADMINISTER 1/2 DOSE. CONTINUE WITH PLAN OF CARE
[2020-09-28 17:51] VITALS: BP 140/88
[2020-09-28 20:00] VITALS: BP 159/97
[2020-09-29] VITALS: BP 117/58
[2020-09-29 04:00] VITALS: BP 119/65
--- NOTE | 2020-09-29 06:16 | NUR ---
PT DID SIT IN CHAIR FOR A PERIOD OF TIME LAST NIGHT BEFORE GOING TO BED. PT ASSISTED WITH 2 STAFF TO BED. NEW PEG TUBE HAD RESIDUAL OF 5ML OF GASTRIC CONTENT AND FLUSHED PER ORDER AFTER AUSCULTATION OF PROPER PLACEMENT WITH ASPIRATION OF RESIDUAL AND REPLACEMENT OF SAME. PT CONTINUES TO C/O PAIN 02/27 BUT STATES THE FENTANYL PATCH HELPS. NO FURTHER PAIN MED OFFERED PT DID FALL ASLEEP ON AND OFF ONCE IN BED WHILE STAFF TALKING TO HIM. REMAINS IN BED RESTING AT THIS TIME.
[2020-09-29 07:20] LABS: BASOPHILS 0 % (0-2); EOSINOPHILS 0 % (0-7); IMMATURE GRANULOCYTES 0.3 % (0-5); LYMPHOCYTES 1.6 % (15-50); MCH 29.6 pg (26.0-34.0); MCHC 33.8 g/dL (31.0-37.0); MCV 87.4 fL (80.0-100.0); MEAN PLATELET VOLUME 9.5 fL (7.4-10.4); MONOCYTES 7.1 % (2-11); NEUTROPHIL ABS# 11.73 10x3/uL (1.78-5.38); RDW 17.4 % (11.5-14.5); RETIC 1.27 % (0.45-2.28)
[2020-09-29 07:34] LABS: HEMATOCRIT 32.5 % (42.0-54.0); PLATELET COUNT 279 10x3/uL (130-400); RBC 3.72 10x6/uL (4.20-6.10); WBC 12.9 10x3/uL (4.8-10.8)
[2020-09-29 07:49] LABS: % SATURATION 13 % (15-55); IRON 23 ug/dl (35-150); TOTAL IRON BIND CAPACITY 168 ug/dl (260-445); UNSAT IRON BIND CAPACITY 145 ug/dl (150-375)
[2020-09-29 07:56] LABS: ALBUMIN 2.2 g/dL (3.4-5.0); ALKALINE PHOSPHATASE 66 U/L (30-120); ALT (SGPT) 17 U/L (10-68); BILIRUBIN - TOTAL 0.48 mg/dL (0.2-1.3); CARBON DIOXIDE 17.8 mmol/L (21.0-32.0); CHLORIDE - SERUM 108 mmol/L (98-107); CREATININE - SERUM 0.7 mg/dL (0.6-1.3); FERRITIN 151 ng/mL (3-244); MAGNESIUM - SERUM 1.6 mg/dL (1.8-2.4); PROTEIN - SERUM 5.3 g/dL (6.4-8.2); SODIUM 140 mmol/L (136-145); eGFR NON AFRICAN AMERICAN > 90 mL/min (90-120)
[2020-09-29 07:58] LABS: CALC OSMOLALITY 277 mosm/kg (275-300); GLUCOSE 93 mg/dL (74-106); POTASSIUM - SERUM 3.1 mmol/L (3.5-5.1); UREA NITROGEN 11 mg/dL (7-18)
--- NOTE | 2020-09-29 08:01 | NUR ---
PATIENT K+ IS LOW THIS MORNING, REPLETE PER PROTOCOL. NO TOHER NEEDS AT THIS TIME. CONTINUE WITH PLAN OF CARE
--- NOTE | 2020-09-29 08:10 | NUR ---
PATIENT MAG WAS LOW WELL REPLETE PER PROTOCOL, PATIENT INQUIRED ON POSSIBLE DC TODAY, INFORMED PATIENT JACK DISCUSS WITH DOCTORS WHEN ROUINDS ARE MADE, CONTINUE WITH PLAN OF CARE
[2020-09-29 10:11] VITALS: BP 110/53
--- NOTE | 2020-09-29 10:13 | NUR ---
PATIENT ON CL, REQUESTING DC PAPERWORK, STATED SOMEONE CAME IN EARLIER WITH HAMZAH HUBER SAYING HE COULD POSSIBLY GO HOME, HAVE NOT SEEN ANYONE THIS MORNING AND TOLD PATIENT 'Skip SHOULD BE MAKING ROUNDS SOON. PPSSIBLY SURGERY PROOF OPERATOR SAW HIM THIS MORNING. CONTINUE WITH PLAN OF CARE
[2020-09-29] MEDS ORDERED: PROTONIX40 MG PO (10:52)
[2020-09-29] MEDS ORDERED: FLORAJEN DIGES1 EACH PO (10:52)
[2020-09-29] MEDS ORDERED: LEVOFLOXACIN500 MG PO (10:53)
[2020-09-29] MEDS ORDERED: FLAGYL500 MG PO (10:53)
--- NOTE | 2020-09-29 12:23 | NUR ---
Nutrition consult: Pt s/p PEG tube placement 09/28/20; received order for TF today. Chart and labs reviewed Wt: 109# No BM charted at this time Pt with nutrition diagnosis of severe malnutrition on admit. RDN will order Jevity 1.5 peg to begin @ 15 ml/hr with gradual increase to goal rate of 40 ml/hr with 120 ml H2O flush q 4 hours. This regimen will provide: 1440 kcal, 62 gm protein, 1430 ml H2O Pt will also be provided with full liquids, very soft foods for pleasure only. Thank you for the consult.
--- NOTE | 2020-09-29 14:03 | NUR ---
WALKED 100 FT MIN ASSIT NEEDS TO SLOW DOWN WHEN TURNING AND GOING TO SIT
--- NOTE | 2020-09-29 14:43 | NUR ---
OT NOTE:(AM) PT COMPLETED SUPINE TO SIT WITH SBA. PT COMPLETED EOB SITTING WITH SBA. PT COMPLETED BUE AROM EXS TOLERATED. PT COMPLETED SIT TO STAND WITH CGA. PT COMPLETED FACE HYGIENE WITH SETUP. (PM) PT COMPLETED SIT TO STAND WITH CGA WITH FOCUS ON SAFETY. [phone] AJAY SANDERS COTA
[2020-09-29 14:48] VITALS: BP 120/73
--- NOTE | 2020-09-29 15:03 | MORECARE ---
CASE MANAGEMENT DISCHARGE SUMMARY PATIENT: VANE CARRILLO UNIT: [id number] ADM DATE: 09/25/20 AGE: 70 : 52 SEX: M ROOM/BED: D.2212 AUTHOR: LUIGI BRADY PHYSICIAN: REFERRING PHYSICIAN: HAMIDA BOONE DO DATE OF SERVICE: 09/29/20 Case Management Discharge Planning Summary DCP REVIEW SUMMARY ANTICIPATED D/C DATE: EXPECTED LOS : CASE STATUS: DCP Initiated INITIAL REVIEW: 09/25/2020 INITIAL REVIEWER: Bibiana Jones FINAL DISCHARGE DISPOSITION: : FINAL REVIEWER: FINAL REVIEW DATE: DCP Focus Questions & Answers QUESTION: ANSWER : PATIENT: VANE CARRILLO ENCOUNTER: [id number] MEDICAL RECORD#: [id number] ADMISSION DATE: 09/25/2020 DISCHARGE DATE: ATTENDING MD: HAMIDA PUCKETT : AGE: 70 MARITAL STATUS: S DC PLAN ID: [id number] FACILITY: [facility] PRINTED ON: 09/29/20 15:03 CT All edits/amendments must be made on the electronic document DICTATION DATE: 09/29/20 150 CHIEF LIBRARIAN EXTENSION DEPARTMENT: DM 09/29/20 1503 RPT#: [id number] DC DATE: STATUS: ADM IN [facility] [address] [place] [address] END OF REPORT
--- NOTE | 2020-09-29 15:18 | MORECARE ---
CASE MANAGEMENT DISCHARGE SUMMARY PATIENT: VANE CARRILLO UNIT: [id number] ADM DATE: 09/25/20 AGE: 70 : 54 SEX: M ROOM/BED: D.2212 AUTHOR: LUIGI BRADY PHYSICIAN: REFERRING PHYSICIAN: HAMIDA BOONE DO DATE OF SERVICE: 09/29/20 Case Management Discharge Planning Summary DCP REVIEW SUMMARY ANTICIPATED D/C DATE: EXPECTED LOS : CASE STATUS: DCP Initiated INITIAL REVIEW: 09/25/2020 INITIAL REVIEWER: Bibiana Jones FINAL DISCHARGE DISPOSITION: : FINAL REVIEWER: FINAL REVIEW DATE: DCP Focus Questions & Answers DCP Screen QUESTION: ANSWER High Risk Factors: : None Walking limitation: Patient stated self rated walking limitation present? : Yes Age: : 67 - 81 Prior living environment: : Lives with others Disability ranking: : Grade 1: No significant disability DCP Evaluation QUESTION: ANSWER Patient gives permission to discuss discharge plans with: (name, relationship and number) : REGIS CARRILLO [phone] Patient's ability to cope with chronic illness : d. No chronic illness Patient's current cognitive status: : *Oriented to person, place, situation, time and present Family / Caregiver's ability to cope with chronic illness: : a. Adequate (ability to meet patient's medical needs, ensures patient attends medical appts.) Patient and/or caregiver agree upon recommended discharge plan? : Yes Physical Status: : Independent with ADL's Family / Caregiver's ability to cope with chronic illness: : a. Adequate (ability to meet patient's medical needs, ensures patient attends medical appts.) Functional screen assessment: : Unable to manage ADLs without immediate ongoing assistance Does the patient have the ability to pay for or attain post discharge needs / services? : Yes Living Arrangements: : Home with others Is there a likelihood that the patient will require additional services to return to the preadmission environment? : Yes Equipment needed for post hospitalization: : None Patient with capacity for self-care or can be cared for in same environment as prior to hospitalization? : Yes Results of this evaluation have been discussed with: : Spouse Other Equipment comments: : NONE Physical environment modification needed / anticipated for discharge: : No Medication Management: : Patient states can afford medications Medication Management: : Patient states they do have transportation to pickers material handlers medications Pharmacy name(s): : [facility] Planned post hospital services available for patient? : N/A Does Patient have transportation to get home and to follow-up medical appointments when discharged from the hospital? : Yes Planned post hospital services covered by insurance plan? : N/A Would patient like to participate in any Care Coordination programs (if applicable): : Not applicable Does the patient have electricity at home? : Yes Does the patient have running water in their house? : Yes Equipment in use: : Cane - Single Leg Equipment in use: : Shower Chair Equipment in use: : Walker - Rolling Other Equipment comments: : NONE Mental health screen: : No mental health history Psychosocial status: : Independent adult (65+) Abuse/Neglect: : None Resources / Services in place: : None Problems identified by the patient regarding discharge: : NONE DCP Re-evaluation QUESTION: ANSWER Would patient like to participate in any Care Coordination programs (if applicable): : Not applicable PATIENT: VANE CARRILLO ENCOUNTER: [id number] MEDICAL RECORD#: [id number] ADMISSION DATE: 09/25/2020 DISCHARGE DATE: ATTENDING MD: HAMIDA PUCKETT : AGE: 70 MARITAL STATUS: S DC PLAN ID: [id number] FACILITY: [facility] PRINTED ON: 09/29/20 15:18 CT All edits/amendments must be made on the electronic document DICTATION DATE: 09/29/201517 CANDLE MOLDER HAND: DIOMEDES 09/29/201517 RPT#: [id number] DC DATE: STATUS: ADM IN [facility] [address] [place] [address] END OF REPORT
--- NOTE | 2020-09-29 15:31 | MORECARE ---
CASE MANAGEMENT DISCHARGE SUMMARY PATIENT: VANE CARRILLO UNIT: [id number] ADM DATE: 09/25/20 AGE: 70 : 54 SEX: M ROOM/BED: D.2212 AUTHOR: LUIGI BRADY PHYSICIAN: REFERRING PHYSICIAN: HAMIDA BOONE DO DATE OF SERVICE: 09/29/20 Case Management Discharge Planning Summary COMMENTS ENTERED DATE: 09/29/20 15:06 CT COMMENT TYPE: Discharge Planning REVIEWER: Bibiana Jones CM MET WITH PATIENT TO COMPLETE DCP AND OFFER AVAILABILITY OF NEEDED SERVICES. PATIENT STATES THAT HE LIVES INDEPENDENTLY AT HOME WITH HIS SPOUSE REGIS CARRILLO [phone]. SPOUSE PRESENT AT TIME OF DCP AND VERIFIED THAT THE HOME ENVIROMENT IS SAFE AND HAS ELECTRICITY AND RUNNING WATER. PT DENIES NEED FOR TRANSPORATION AND STATES HE HAS THE FUNDS FOR SERVICES AND MEDICATIONS IF NEEDED. PCP IS DR. LESTER AND PHARMACY IS [facility]. CM DISCUSSED HOME HEALTH, REHAB SERVICES, AND ADDITIONAL MEDICAL EQUIPTMENT. PATIENT AND SPOUSE FEEL THEY CAN HANDLE HIS CARE WHEN DISCHARGED AND DO NOT FEEL HE NEEDS ADDTIONAL SERVICES AT THIS TIME. PATIENT HAS CANE, SHOWER CHAIR, AND ROLLER WALKER PRESENTLY. TRANPORTATION HOME WILL BE PROVIDED BY SPOUSE. IMM DELIVERED WITH SIGNED COPY PLACED IN PATIENT CHART. SUDEEP FORM SIGNED FOR REFUSAL OF ADDITIONAL NEEDS AT THIS TIME WITH COPY PLACED IN PATIENT CHART. DCP REVIEW SUMMARY ANTICIPATED D/C DATE: EXPECTED LOS : CASE STATUS: DCP Initiated INITIAL REVIEW: 09/25/2020 INITIAL REVIEWER: Bibiana Jones FINAL DISCHARGE DISPOSITION: : FINAL REVIEWER: FINAL REVIEW DATE: DCP Focus Questions & Answers DCP Screen QUESTION: ANSWER High Risk Factors: : None Walking limitation: Patient stated self rated walking limitation present? : Yes Age: : 67 - 81 Prior living environment: : Lives with others Disability ranking: : Grade 1: No significant disability DCP Evaluation QUESTION: ANSWER Patient gives permission to discuss discharge plans with: (name, relationship and number) : REGIS CARRILLO [phone] Patient's ability to cope with chronic illness : d. No chronic illness Patient's current cognitive status: : *Oriented to person, place, situation, time and present Family / Caregiver's ability to cope with chronic illness: : a. Adequate (ability to meet patient's medical needs, ensures patient attends medical appts.) Patient and/or caregiver agree upon recommended discharge plan? : Yes Physical Status: : Independent with ADL's Family / Caregiver's ability to cope with chronic illness: : a. Adequate (ability to meet patient's medical needs, ensures patient attends medical appts.) Functional screen assessment: : Unable to manage ADLs without immediate ongoing assistance Does the patient have the ability to pay for or attain post discharge needs / services? : Yes Living Arrangements: : Home with others Is there a likelihood that the patient will require additional services to return to the preadmission environment? : Yes Equipment needed for post hospitalization: : None Patient with capacity for self-care or can be cared for in same environment as prior to hospitalization? : Yes Results of this evaluation have been discussed with: : Spouse Other Equipment comments: : NONE Physical environment modification needed / anticipated for discharge: : No Medication Management: : Patient states can afford medications Medication Management: : Patient states they do have transportation to greens picker medications Pharmacy name(s): : [facility] Planned post hospital services available for patient? : N/A Does Patient have transportation to get home and to follow-up medical appointments when discharged from the hospital? : Yes Planned post hospital services covered by insurance plan? : N/A Would patient like to participate in any Care Coordination programs (if applicable): : Not applicable Does the patient have electricity at home? : Yes Does the patient have running water in their house? : Yes Equipment in use: : Cane - Single Leg Equipment in use: : Shower Chair Equipment in use: : Walker - Rolling Other Equipment comments: : NONE Mental health screen: : No mental health history Psychosocial status: : Independent adult (65+) Abuse/Neglect: : None Resources / Services in place: : None Problems identified by the patient regarding discharge: : NONE DCP Re-evaluation QUESTION: ANSWER Would patient like to participate in any Care Coordination programs (if applicable): : Not applicable PATIENT: VANE CARRILLO ENCOUNTER: [id number] MEDICAL RECORD#: [id number] ADMISSION DATE: 09/25/2020 DISCHARGE DATE: ATTENDING MD: HAMIDA PUCKETT : AGE: 70 MARITAL STATUS: S DC PLAN ID: [id number] FACILITY: [facility] PRINTED ON: 09/29/20 15:30 CT All edits/amendments must be made on the electronic document DICTATION DATE: 09/29/201529 AEROSPACE PROJECT MANAGER: DIOMEDES 09/29/201529 RPT#: [id number] DC DATE: STATUS: ADM IN [facility] [address] [place] [address] END OF REPORT
[2020-09-30] MEDS ORDERED: ATIVAN0.5 MG PO (04:15)
[2020-09-30] MEDS ORDERED: THORAZINE50 MG PO (04:17)
[2020-09-30] MEDS ORDERED: NITROQUICK0.4 MG SL (04:18)
--- NOTE | 2020-09-30 14:10 | MORECARE ---
CASE MANAGEMENT DISCHARGE SUMMARY PATIENT: VANE CARRILLO UNIT: [id number] ADM DATE: 09/25/20 AGE: 70 : 52 SEX: M ROOM/BED: D.2212 AUTHOR: LUIGI BRADY PHYSICIAN: REFERRING PHYSICIAN: HAMIDA BOONE DO DATE OF SERVICE: 09/30/20 Case Management Discharge Planning Summary COMMENTS ENTERED DATE: 09/29/20 15:06 CT COMMENT TYPE: Discharge Planning REVIEWER: Bibiana Jones CM MET WITH PATIENT TO COMPLETE DCP AND OFFER AVAILABILITY OF NEEDED SERVICES. PATIENT STATES THAT HE LIVES INDEPENDENTLY AT HOME WITH HIS SPOUSE REGIS CARRILLO [phone]. SPOUSE PRESENT AT TIME OF DCP AND VERIFIED THAT THE HOME ENVIROMENT IS SAFE AND HAS ELECTRICITY AND RUNNING WATER. PT DENIES NEED FOR TRANSPORATION AND STATES HE HAS THE FUNDS FOR SERVICES AND MEDICATIONS IF NEEDED. PCP IS DR. LESTER AND PHARMACY IS [facility]. CM DISCUSSED HOME HEALTH, REHAB SERVICES, AND ADDITIONAL MEDICAL EQUIPTMENT. PATIENT AND SPOUSE FEEL THEY CAN HANDLE HIS CARE WHEN DISCHARGED AND DO NOT FEEL HE NEEDS ADDTIONAL SERVICES AT THIS TIME. PATIENT HAS CANE, SHOWER CHAIR, AND ROLLER WALKER PRESENTLY. TRANPORTATION HOME WILL BE PROVIDED BY SPOUSE. IMM DELIVERED WITH SIGNED COPY PLACED IN PATIENT CHART. SUDEEP FORM SIGNED FOR REFUSAL OF ADDITIONAL NEEDS AT THIS TIME WITH COPY PLACED IN PATIENT CHART. DCP REVIEW SUMMARY ANTICIPATED D/C DATE: EXPECTED LOS : CASE STATUS: DCP Initiated INITIAL REVIEW: 09/25/2020 INITIAL REVIEWER: Bibiana Jones FINAL DISCHARGE DISPOSITION: : FINAL REVIEWER: FINAL REVIEW DATE: DCP Focus Questions & Answers DCP Screen QUESTION: ANSWER High Risk Factors: : None Walking limitation: Patient stated self rated walking limitation present? : Yes Age: : 67 - 81 Prior living environment: : Lives with others Disability ranking: : Grade 1: No significant disability DCP Evaluation QUESTION: ANSWER Patient and/or caregiver agree upon recommended discharge plan? : Yes Family / Caregiver's ability to cope with chronic illness: : a. Adequate (ability to meet patient's medical needs, ensures patient attends medical appts.) Patient's current cognitive status: : *Oriented to person, place, situation, time and present Patient's ability to cope with chronic illness : d. No chronic illness Patient gives permission to discuss discharge plans with: (name, relationship and number) : REGIS CARRILLO [phone] Does the patient have the ability to pay for or attain post discharge needs / services? : Yes Functional screen assessment: : Unable to manage ADLs without immediate ongoing assistance Family / Caregiver's ability to cope with chronic illness: : a. Adequate (ability to meet patient's medical needs, ensures patient attends medical appts.) Physical Status: : Independent with ADL's Equipment needed for post hospitalization: : None Is there a likelihood that the patient will require additional services to return to the preadmission environment? : Yes Living Arrangements: : Home with others Other Equipment comments: : NONE Results of this evaluation have been discussed with: : Spouse Patient with capacity for self-care or can be cared for in same environment as prior to hospitalization? : Yes Physical environment modification needed / anticipated for discharge: : No Medication Management: : Patient states they do have transportation to hand picker medications Medication Management: : Patient states can afford medications Planned post hospital services available for patient? : N/A Pharmacy name(s): : [facility] Planned post hospital services covered by insurance plan? : N/A Does Patient have transportation to get home and to follow-up medical appointments when discharged from the hospital? : Yes Would patient like to participate in any Care Coordination programs (if applicable): : Not applicable Does the patient have electricity at home? : Yes Does the patient have running water in their house? : Yes Equipment in use: : Walker - Rolling Equipment in use: : Shower Chair Equipment in use: : Cane - Single Leg Other Equipment comments: : NONE Mental health screen: : No mental health history Psychosocial status: : Independent adult (65+) Abuse/Neglect: : None Resources / Services in place: : None Problems identified by the patient regarding discharge: : NONE DCP Re-evaluation QUESTION: ANSWER Would patient like to participate in any Care Coordination programs (if applicable): : Not applicable PATIENT: VANE CARRILLO ENCOUNTER: [id number] MEDICAL RECORD#: [id number] ADMISSION DATE: 09/25/2020 DISCHARGE DATE: 09/29/2020 ATTENDING MD: HAMIDA PUCKETT : AGE: 70 MARITAL STATUS: S DC PLAN ID: [id number] FACILITY: [facility] PRINTED ON: 09/30/20 14:10 CT All edits/amendments must be made on the electronic document DICTATION DATE: 09/30/201409 ROTOFORMER BACKTENDER: DIOMEDES 09/30/201409 RPT#: [id number] DC DATE:09/29/20 STATUS: DIS IN [facility] [address] [place] [address] END OF REPORT
== END 2020-09-29 16:25 | disposition home or self-care (01) | DRG 907 ==
LOC: D.ER 18:13 → D.MS 21:41
PROVIDERS: Family Medicine; Student in an Organized Health Care Education/Training Program; Surgery; ADMIT Family Medicine; ATTEND Family Medicine
PROC: 0DW Gastrointestinal System, Revision (ICD-10-PCS; 2020-09-28)
PROC: 0DB58ZX Excision of Esophagus, Via Natural or Artificial Opening Endoscopic, Diagnostic (ICD-10-PCS; 2020-09-28)
PROC: 0DH63UZ Insertion of Feeding Device into Stomach, Percutaneous Approach (ICD-10-PCS; 2020-09-28)
PROC: 0DB78ZX Excision of Stomach, Pylorus, Via Natural or Artificial Opening Endoscopic, Diagnostic (ICD-10-PCS; principal; 2020-09-28 09:50)
DX: T85.528A Displacement of other gastrointestinal prosthetic devices, implants and grafts, initial encounter (principal); E43 Unspecified severe protein-calorie malnutrition; E87.1 Hypo-osmolality and hyponatremia; Z68.1 Body mass index [BMI] 19.9 or less, adult; Y83.9 Surgical procedure, unspecified as the cause of abnormal reaction of the patient, or of later complication, without mention of misadventure at the time of the procedure; K52.9 Noninfective gastroenteritis and colitis, unspecified; I25.10 Atherosclerotic heart disease of native coronary artery without angina pectoris; E78.5 Hyperlipidemia, unspecified; I73.9 Peripheral vascular disease, unspecified; G89.29 Other chronic pain; Z85.51 Personal history of malignant neoplasm of bladder; Z85.01 Personal history of malignant neoplasm of esophagus; D50.9 Iron deficiency anemia, unspecified; I71.4 Abdominal aortic aneurysm, without rupture; K22.70 Barrett's esophagus without dysplasia; S22.41XD Multiple fractures of ribs, right side, subsequent encounter for fracture with routine healing; M48.54XD Collapsed vertebra, not elsewhere classified, thoracic region, subsequent encounter for fracture with routine healing

== ENCOUNTER 2020-09-30 00:05 | Inpatient (IN) | payer MEDICARE ==
[~2020-09-30] VITALS: Ht 170.2 cm; Wt 53.3 kg
[2020-09-30] VITALS (21 sets, daily range): BP systolic 70–149; BP diastolic 23–116; Ht 170.2 cm; Wt 53.3 kg
[~2020-09-30 00:05] MED LIST changes: +BACLOFEN10 MG; +FLAGYL500 MG PO; +FLORAJEN DIGES1 EACH PO; +LEVOFLOXACIN500 MG PO; +PEPCID40 MG PO; +TRIAMTERENE-HC1 EAC6 PO
[2020-09-30 00:46] LABS: BASOPHILS 0 % (0-2); EOSINOPHILS 0 % (0-7); IMMATURE GRANULOCYTES 0.7 % (0-5); LYMPHOCYTE ABS# 0.29 10x3/uL (1.32-3.57); LYMPHOCYTES 9.6 % (15-50); MCH 30.2 pg (26.0-34.0); MCHC 34.2 g/dL (31.0-37.0); MCV 88.4 fL (80.0-100.0); MEAN PLATELET VOLUME 10.1 fL (7.4-10.4); NEUTROPHIL ABS# 2.57 10x3/uL (1.78-5.38); NEUTROPHILS 84.7 % (40-80); PLATELET COUNT 284 10x3/uL (130-400)
[2020-09-30 00:47] LABS: HEMATOCRIT 44.8 % (42.0-54.0); HEMOGLOBIN 15.3 g/dL (13.5-17.5); RBC 5.07 10x6/uL (4.20-6.10)
[2020-09-30 00:53] LABS: CALCIUM 8.1 mg/dL (8.5-10.1); CARBON DIOXIDE 16.6 mmol/L (21.0-32.0); CHLORIDE - SERUM 110 mmol/L (98-107); POTASSIUM - SERUM 3.1 mmol/L (3.5-5.1); SODIUM 144 mmol/L (136-145); UREA NITROGEN 12 mg/dL (7-18); eGFR NON AFRICAN AMERICAN 64 mL/min (90-120)
[2020-09-30 00:55] LABS: CALC OSMOLALITY 290 mosm/kg (275-300); CREATININE - SERUM 1.2 mg/dL (0.6-1.3); GLUCOSE 170 mg/dL (74-106)
[2020-09-30 01:09] LABS: ALBUMIN 2.3 g/dL (3.4-5.0); ALKALINE PHOSPHATASE 74 U/L (30-120); ALT (SGPT) 20 U/L (10-68); BILIRUBIN - TOTAL 0.69 mg/dL (0.2-1.3); CREATINE KINASE 169 UL (21-232); LIPASE 448 U/L (73-393); MAGNESIUM - SERUM 1.8 mg/dL (1.8-2.4); PRO BNP 3319 pg/mL (0-125); PROTEIN - SERUM 5.6 g/dL (6.4-8.2); TROPONIN-I < 0.017 ng/mL (0.000-0.060)
--- NOTE | 2020-09-30 01:27 | NUR ---
PT TO RADIOLOGY VIA STRETCHER
--- NOTE | 2020-09-30 01:47 | NUR ---
PT RETURNED FROM RADIOLOGY.
--- NOTE | 2020-09-30 03:00 | NUR ---
DR ROSS AT PTS BEDSIDE, REMOVED PT'S PEG TUBE AND APPLIED DRESSING TO SITE. PT TOLERATED WELL.
[2020-09-30] MEDS ORDERED: ATIVAN0.5 MG PO (04:15)
[2020-09-30] MEDS ORDERED: THORAZINE50 MG PO (04:17)
[2020-09-30] MEDS ORDERED: NITROQUICK0.4 MG SL (04:18)
--- NOTE | 2020-09-30 04:30 | NUR ---
PT RECEIVED TO ROOM 2310 FROM THE ER. TRANSFERRED PT TO BED AND WAS ATTACHED TO MONITORS. CURRENTLY AT BEDSIDE. NO S/S OF DISTRESS NOTED AT THIS TIME. AMISSION ASSESSMENT, AND HISTORY COMPLETED, SEE FLOWSHEET FOR DETAILS.
[2020-09-30 05:25] LABS: BASOPHILS 0 % (0-2); EOSINOPHILS 0.5 % (0-7); HEMATOCRIT 42.6 % (42.0-54.0); HEMOGLOBIN 14.5 g/dL (13.5-17.5); IMMATURE GRANULOCYTES 2.3 % (0-5); LYMPHOCYTE ABS# 0.16 10x3/uL (1.32-3.57); LYMPHOCYTES 7.5 % (15-50); MCH 30.1 pg (26.0-34.0); MCV 88.6 fL (80.0-100.0); MEAN PLATELET VOLUME 10.2 fL (7.4-10.4); MONOCYTES 13.1 % (2-11); NEUTROPHIL ABS# 1.64 10x3/uL (1.78-5.38); NEUTROPHILS 76.6 % (40-80); PLATELET COUNT 237 10x3/uL (130-400); RBC 4.81 10x6/uL (4.20-6.10); WBC 2.1 10x3/uL (4.8-10.8)
[2020-09-30 05:51] LABS: APTT 32.4 SECONDS (22.8-39.4); INR 1.44 (0.85-1.17); PROTIME 16.2 SECONDS (11.6-15.0)
[2020-09-30 05:57] LABS: ALBUMIN 1.9 g/dL (3.4-5.0); BILIRUBIN - TOTAL 0.46 mg/dL (0.2-1.3); CALCIUM 7.6 mg/dL (8.5-10.1); CREATININE - SERUM 1.2 mg/dL (0.6-1.3); MAGNESIUM - SERUM 1.8 mg/dL (1.8-2.4); PHOSPHOROUS 3.8 mg/dL (2.5-4.9); PROTEIN - SERUM 4.4 g/dL (6.4-8.2)
[2020-09-30 06:01] LABS: ANION GAP 23.8 mmol/L (8-16); POTASSIUM - SERUM 3.8 mmol/L (3.5-5.1)
--- NOTE | 2020-09-30 11:19 | NUR ---
TALKED WITH PATIENT AND PATIENT TO BE A FULL CODE. MOTTLING OVER LOWER ABD NOTED AND DR ROSS CALLED ABOUT BLOOD PRESSURE. IV FLUID STARTED AND NARCAN GIVEN TO REVERSE PAIN MED.
[2020-09-30 12:39] LABS: AMORPHOUS SEDIMENT <1+ LPF (NONE SEEN); BACTERIA FEW HPF (NONE SEEN); BILIRUBIN NEGATIVE (NEGATIVE); KETONE NEGATIVE (NEGATIVE); NITRITE NEGATIVE (NEGATIVE); SQUAMOUS EPITHELIAL RARE HPF (0-4); UROBILINOGEN NORMAL mg/dL (< 2); WHITE CELLS - URINE OCC HPF (0-1)
--- NOTE | 2020-09-30 18:04 | NUR ---
1737 PATIENT AND FAMILY IN ROOM AND PATIENT CLEANED UP AND CODE SHEET DONE AND RECORD OF DONE WAITING ON A HOME FOR THE PATIENT FROM THE .
--- NOTE | 2020-09-30 19:50 | NUR ---
FAXED HOSPITAL REPORT TO PHLEBOTOMY COORDINATOR'S OFFICE.
--- NOTE | 2020-10-05 17:14 | OP ---
PATIENT NAME: VANE CARRILLO MEDICAL RECORD: [id number] :54 LOCATION:D.[facility] D.2310 ADMISSION DATE:09/30/20 SURGEON: DAVID PETERSON MD DATE OF OPERATION: 09/30/2020 PREOPERATIVE DIAGNOSES: 1. Septicemia. 2. Pneumoperitoneum. 3. Need of additional IV access for vasopressor agents. POSTOPERATIVE DIAGNOSES: 1. Septicemia. 2. Pneumoperitoneum. 3. Need of additional IV access for vasopressor agents. PROCEDURE: Insertion of right internal jugular triple lumen central venous catheter. SURGEON: David Peterson MD. CERTIFIED ETHICAL HACKER: None. BLOOD LOSS: Minimal. ANESTHESIA: Local. DESCRIPTION OF PROCEDURE: The patient desires to be a FULL CODE. I discussed this with him and with his family today. Additional IV access is necessary for vasopressor agents. The patient has a pneumoperitoneum. This occurred because he fell and his gastrostomy tube was dislodged. We have discussed putting another gastrostomy tube in or repegging the site or watchful waiting. The patient has elected for watchful waiting. I am looking at his x-ray images. The pneumoperitoneum certainly is large. He actually states that he feels better since his admission yesterday. Continue to just watch him and see if the pneumoperitoneum decreases in size and watch him clinically. If his condition worsens then I think that I would intervene surgically at that time. The risks, possible complications, alternatives to the procedure were explained to the patient. He elects to proceed. The patient was seen in his ICU room. The right neck was sterilely prepped and draped. Local anesthetic was used to infiltrate the skin and subcutaneous tissues of the patient's right neck. Right internal jugular vein was percutaneously accessed in antegrade fashion. A guidewire passed easily. A small skin dilia was accomplished. A vessel dilator was used to dilate a subcutaneous tract. A 16 cm triple lumen central venous catheter was inserted to the hub. It was sutured in place times 1. All lumens flushed easily and aspirated dark, nonpulsatile blood. A portable chest x-ray revealed adequate placement of the central venous line without radiographic evidence of complication. TRANSINT:[id number] Voice Confirmation ID: [id number] DOCUMENT ID: [id number] OPERATIVE REPORT [id number] VANE CARRILLO DAVID PETERSON MD at 1714 CC: [id number] DICTATION DATE: 09/30/20 1626 X RAY EXAMINER OF AIRCRAFT: 09/30/20 181 DIS IN 09/30/20 [id number] [place] [address]
== END 2020-09-30 18:00 | DRG 871 ==
LOC: D.ER 00:05 → D.ICU 03:22
PROVIDERS: Family Medicine; ADMIT Emergency Medicine; ATTEND Emergency Medicine
PROC: 05HM33Z Insertion of Infusion Device into Right Internal Jugular Vein, Percutaneous Approach (ICD-10-PCS; principal; 2020-09-30)
PROC: 0DP67UZ Removal of Feeding Device from Stomach, Via Natural or Artificial Opening (ICD-10-PCS; 2020-09-30)
DX: A41.9 Sepsis, unspecified organism (principal); J96.01 Acute respiratory failure with hypoxia; E43 Unspecified severe protein-calorie malnutrition; K94.22 Gastrostomy infection; C15.9 Malignant neoplasm of esophagus, unspecified; M48.54XA Collapsed vertebra, not elsewhere classified, thoracic region, initial encounter for fracture; I31.3 Pericardial effusion (noninflammatory); J90 Pleural effusion, not elsewhere classified; Z68.1 Body mass index [BMI] 19.9 or less, adult; K94.23 Gastrostomy malfunction; R65.20 Severe sepsis without septic shock; K21.9 Gastro-esophageal reflux disease without esophagitis; I10 Essential (primary) hypertension; E78.5 Hyperlipidemia, unspecified; M19.90 Unspecified osteoarthritis, unspecified site; F41.9 Anxiety disorder, unspecified; R06.02 Shortness of breath; D50.9 Iron deficiency anemia, unspecified; E87.6 Hypokalemia; R13.10 Dysphagia, unspecified; I46.9 Cardiac arrest, cause unspecified